=== PATIENT | female | born 1985 | race Caucasian/White ===

== ENCOUNTER 2019-03-09 15:52 | Emergency (ER) | payer OTHER ==
[2019-03-09 16:04] VITALS: BP 134/86
--- NOTE | 2019-03-09 16:31 | EDM.PDOC ---
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 Patient states she has not had an ultrasound of follows along with Ellen Zheng in the clinic and had a confirmation of appointment last week. Patient states she is having 9 out of 10 lower abdominal pain more so to the left. Patient states the pain is worse when she presses on it. Patient denies any other symptoms at this time. Patient denies any vaginal bleeding or change in discharge. Patient denies fever, chills, chest pain, shortness of breath, or cough. Denies headache, neck stiff ness, change in vision, syncope, or near syncope. Denies nausea, vomiting, diarrhea, constipation, or dysuria. Has not noted any blood in urine or stool. Patient has been eating and drinking appropriately. Review of systems: As per history of present illness and below otherwise all systems reviewed and negative. Past medical history: As per history of present illness and as reviewed below otherwise noncontributory. Surgical history: As per history of present illness and as reviewed below otherwise noncontributory. Social history: See social history for further information Family history: As per history of present illness and as reviewed below otherwise noncontributory. Physical exam: General: Patient is alert, oriented, and in no acute distress. Patient sitting comfortably on exam table. HEENT: Atraumatic, normocephalic, pupils equal and reactive bilaterally, negative for conjunctival pallor or scleral icterus, mucous membranes moist, TMs normal bilaterally, throat clear, neck supple, nontender, trachea midline. No drooling or trismus noted. No meningeal signs. No hot potato voice noted. Lungs: Clear to auscultation, breath sounds equal bilaterally, chest nontender. Heart: S1S2, regular rate and rhythm without overt murmur Abdomen: Severe suprapubic pain to palpation and to the left with guarding. Soft , nondistended. Negative for masses or hepatosplenomegaly. Negative for costovertebral tenderness. Pelvis: Stable nontender. Genitourinary: Deferred. Rectal: Deferred. Skin: Intact, warm, dry. No lesions or rashes noted. Extremities: Atraumatic, negative for cords or calf pain. Neurovascular unremarkable. Neuro: Awake, alert, oriented. Cranial nerves II through XII unremarkable. Cerebellum unremarkable. Motor and sensory unremarkable throughout. Exam nonfocal. Notes: Discussed the importance for follow-up with her HEEL SANDER RUBBER and for repeat hCG Quant. Voices understanding and is agreeable to plan of care. Denies any further questions or concerns at this time. Diagnostics: CBC, CMP, urine hCG, UA, hCG Quant, Rh/blood type, TVUS Therapeutics: None Prescription: None Impression: Left lower abdominal pain in early Plan: 1.Please start and/or continue to take your vitamin with folic acid once daily. 2. Pelvic rest until cleared by your OBGYN (no tampons, sex, etc...) 3. Tylenol as needed for pain management. This is safe to use in . 4. Follow up with your HEEL SANDER RUBBER in the next 1-2 days and repeat lab work as provided. Return to the ED as needed and as discussed. Definitive disposition and diagnosis as appropriate pending reevaluation and review of above. Lower Abdomen Pain Score (Numeric/FACES): 7 - Related Data Allergies Allergy/AdvReac Type Severity Reaction Status Date / Time metronidazole [From Flagyl] Allergy Rash Verified 11/21/16 14:23 Metronidazole HCl Allergy Rash Verified 11/21/16 14:23 [From Flagyl] Home Meds: Home Meds Escitalopram [Lexapro] 1 tab PO DAILY 10/29/16 [History] Sulfamethoxazole/Trimethoprim [Bactrim Ds Tablet] 1 each PO BID #20 tablet 11/21 [Rx] traMADol [Ultram] 50 mg PO Q8H PRN #12 tablet 11/21/16 [Rx] Past Medical History - Past Health History Medical/Surgical History: Denies Medical/Surgical History HEENT History: Reports: None Cardiovascular History: Reports: None Respiratory History: Reports: None Gastrointestinal History: Reports: None Genitourinary History: Reports: Renal Calculus HEEL SANDER RUBBER History: Reports: Polycystic Ovaries Musculoskeletal History: Reports: None Neurological History: Reports: None Psychiatric History: Reports: Anxiety Endocrine/Metabolic History: Reports: None Hematologic History: Reports: None Immunologic History: Reports: None Oncologic (Cancer) History: Reports: None Dermatologic History: Reports: None - Infectious Disease History Infectious Disease History: Reports: Chicken Pox - Past Surgical History Female Surgical History: Reports: Ureteral Stent Social & Family History - Family History Family Medical History: Noncontributory - Tobacco Use Smoking Status *Q: Current Every Day Smoker Years of Tobacco use: 11 Packs/Tins Daily: 0.5 - Caffeine Use Caffeine Use: Reports: Coffee Caffeine Use Comment: 2 drinks/day - Recreational Drug Use Recreational Drug Use: No - Living Situation & Occupation Occupation: Employed ED ROS GENERAL - Review of Systems Review Of Systems: ROS reveals no pertinent complaints other than HPI. ED EXAM - Physical Exam Exam: See Below (See dictation) Course - Vital Signs Last Recorded V/S: Last Vital Signs Temp 36.4 C 03/09/19 15:57 Pulse 89 03/09/19 15:57 Resp 17 03/09/19 15:57 BP 134/86 03/09/19 15:57 Pulse Ox 100 03/09/19 15:57 - Orders/Labs/Meds Labs: Laboratory Tests 03/09/19 03/09/19 03/09/19 Range/Units 14:20 14:20 16:27 WBC 11.42 H (4.0-11.0) K/uL RBC 4.52 (4.30-5.90) M/uL Hgb 13.2 (12.0-16.0) g/dL Hct 40.7 (36.0-46.0) % MCV 90.0 (80.0-98.0) fL MCH 29.2 (27.0-32.0) pg MCHC 32.4 (31.0-37.0) g/dL RDW Std Deviation 52.1 (28.0-62.0) fl RDW Coeff of Bianca 16 H (11.0-15.0) % Plt Count 336 (150-400) K/uL MPV 9.00 (7.40-12.00) fL Neut % (Auto) 71.2 (48.0-80.0) % Lymph % (Auto) 21.0 (16.0-40.0) % [place] % (Auto) 6.7 (0.0-15.0) % Eos % (Auto) 0.9 (0.0-7.0) % Baso % (Auto) 0.2 (0.0-1.5) % Neut # (Auto) 8.1 H (1.4-5.7) K/uL Lymph # (Auto) 2.4 (0.6-2.4) K/uL [place] # (Auto) 0.8 (0.0-0.8) K/uL Eos # (Auto) 0.1 (0.0-0.7) K/uL Baso # (Auto) 0.0 (0.0-0.1) K/uL Nucleated RBC % 0.0 /100WBC Nucleated RBCs # 0 K/uL Sodium (136-145) mmol/L Potassium (3.5-5.1) mmol/L Chloride (98-107) mmol/L Carbon Dioxide (21.0-32.0) mmol/L BUN (7.0-18.0) mg/dL Creatinine (0.6-1.0) mg/dL Est Cr Clr Drug Dosing mL/min Estimated GFR (MDRD) ml/min Glucose (74-106) mg/dL Calcium (8.5-10.1) mg/dL Total Bilirubin (0.2-1.0) mg/dL AST (15-37) IU/L ALT (14-63) IU/L Alkaline Phosphatase (46-116) U/L Total Protein (6.4-8.2) g/dL Albumin (3.4-5.0) g/dL Globulin (2.6-4.0) g/dL Albumin/Globulin Ratio (0.9-1.6) HCG, Quant mIU/mL Urine Color YELLOW Urine Appearance SLT CLOUDY Urine pH 7.0 (5.0-8.0) Ur Specific [place] 1.015 (1.001-1.035) Urine Protein NEGATIVE (NEGATIVE) mg/dL Urine Glucose (UA) NEGATIVE (NEGATIVE) mg/dL Urine Ketones NEGATIVE (NEGATIVE) mg/dL Urine Occult Blood NEGATIVE (NEGATIVE) Urine Nitrite NEGATIVE (NEGATIVE) Urine Bilirubin NEGATIVE (NEGATIVE) Urine Urobilinogen 0.2 (<2.0) EU/dL Ur Leukocyte Esterase NEGATIVE (NEGATIVE) Urine HCG, Qual POSITIVE (NEGATIVE) Blood Type 03/09/19 03/09/19 Range/Units 16:27 16:27 WBC (4.0-11.0) K/uL RBC (4.30-5.90) M/uL Hgb (12.0-16.0) g/dL Hct (36.0-46.0) % MCV (80.0-98.0) fL MCH (27.0-32.0) pg MCHC (31.0-37.0) g/dL RDW Std Deviation (28.0-62.0) fl RDW Coeff of Bianca (11.0-15.0) % Plt Count (150-400) K/uL MPV (7.40-12.00) fL Neut % (Auto) (48.0-80.0) % Lymph % (Auto) (16.0-40.0) % [place] % (Auto) (0.0-15.0) % Eos % (Auto) (0.0-7.0) % Baso % (Auto) (0.0-1.5) % Neut # (Auto) (1.4-5.7) K/uL Lymph # (Auto) (0.6-2.4) K/uL [place] # (Auto) (0.0-0.8) K/uL Eos # (Auto) (0.0-0.7) K/uL Baso # (Auto) (0.0-0.1) K/uL Nucleated RBC % /100WBC Nucleated RBCs # K/uL Sodium 139 (136-145) mmol/L Potassium 3.8 (3.5-5.1) mmol/L Chloride 102 (98-107) mmol/L Carbon Dioxide 29.0 (21.0-32.0) mmol/L BUN 12 (7.0-18.0) mg/dL Creatinine 0.7 (0.6-1.0) mg/dL Est Cr Clr Drug Dosing 117.47 mL/min Estimated GFR (MDRD) > 60.0 ml/min Glucose 80 (74-106) mg/dL Calcium 9.1 (8.5-10.1) mg/dL Total Bilirubin 0.3 (0.2-1.0) mg/dL AST 16 (15-37) IU/L ALT 25 (14-63) IU/L Alkaline Phosphatase 58 (46-116) U/L Total Protein 7.8 (6.4-8.2) g/dL Albumin 4.1 (3.4-5.0) g/dL Globulin 3.7 (2.6-4.0) g/dL Albumin/Globulin Ratio 1.1 (0.9-1.6) HCG, Quant 62134.0 mIU/mL Urine Color Urine Appearance Urine pH (5.0-8.0) Ur Specific [place] (1.001-1.035) Urine Protein (NEGATIVE) mg/dL Urine Glucose (UA) (NEGATIVE) mg/dL Urine Ketones (NEGATIVE) mg/dL Urine Occult Blood (NEGATIVE) Urine Nitrite (NEGATIVE) Urine Bilirubin (NEGATIVE) Urine Urobilinogen (<2.0) EU/dL Ur Leukocyte Esterase (NEGATIVE) Urine HCG, Qual (NEGATIVE) Blood Type A POSITIVE Departure - Departure Time of Disposition: 17:50 Disposition: DC/Tfer to [facility] - Home 50 Clinical Impression: Abdominal pain in Qualifiers: Trimester: first trimester Qualified Code(s): O26.891 - Other specified related conditions, first trimester; R10.9 - Unspecified abdominal pain - Discharge Information Referrals: PCP,Unknown [Primary Care Provider] - Forms: ED Department Discharge Additional Instructions: The following information is given to patients seen in the emergency department who are being discharged to home. This information is to outline your options for follow-up care. We provide all patients seen in our emergency department with a follow-up referral. The need for follow-up, as well as the timing and circumstances, are variable depending upon the specifics of your emergency department visit. If you don't have a primary care physician on staff, we will provide you with a referral. We always advise you to contact your personal physician following an emergency department visit to inform them of the circumstance of the visit and for follow-up with them and/or the need for any referrals to a consulting specialist. The emergency department will also refer you to a specialist when appropriate. This referral assures that you have the opportunity for follow-up care with a specialist. All of these measure are taken in an effort to provide you with optimal care, which includes your follow-up. Under all circumstances we always encourage you to contact your private physician who remains a resource for coordinating your care. When calling for follow-up care, please make the office aware that this follow-up is from your recent emergency room visit. If for any reason you are refused follow-up, please contact the [facility] Emergency Department at and asked to speak to the emergency department charge nurse. [facility] Primary Care [address] [address] [facility] [address] [place] [id number] 1. Please start and/or continue to take your vitamin with folic acid once daily. 2. Pelvic rest until cleared by your OBGYN (no tampons, sex, etc...) 3. Tylenol as needed for pain management. This is safe to use in . 4. Follow up with your HEEL SANDER RUBBER in the next 1-2 days and repeat lab work as provided. Return to the ED as needed and as discussed.
[2019-03-09 17:30] LABS: CHLORIDE,CL 102 mmol/L (98-107); SODIUM,NA 139 mmol/L (136-145)
--- NOTE | 2019-03-09 17:39 | US ---
INDICATION: with left-sided pelvic pain TECHNIQUE: Ultrasound OB pelvis transvaginal. Real time olivia scale imaging of the pelvis was performed. COMPARISON: None FINDINGS: Endovaginal scanning reveals a small fluid collection in the uterine fundal region appearing to represent a gestational sac within the fundal endometrial canal. The gestational sac measures 1.3 x 1.1 x 0.5 centimeters corresponding with a gestational age of 5 weeks 5 days. A pole is not identified and therefore a live intrauterine cannot be confirmed. Correlation with serial beta hCGs and/or follow-up sonography in 2-3 weeks is recommended. The uterus is otherwise unremarkable. Endovaginal scanning reveals the right ovary to measure 3.9 x 1.8 x 3.4 centimeters and the left ovary measured 2.8 x 2.9 x 2.8 centimeters. A probable corpus luteum is noted within the left ovary measuring up to 2 centimeters in diameter. Endovaginal spectral color and Doppler sonography reveal normal bilateral ovarian arterial and venous blood flow. No adnexal masses or abnormal pelvic fluid collections are seen. Specifically, there is no evidence for an ectopic . IMPRESSION: 1. Apparent gestational sac within the uterine endometrial canal corresponds with a gestational age of 5 weeks 5 days. A pole is not demonstrated and therefore a live intrauterine is not confirmed with this exam. Correlate with serial beta HCGs and/or follow-up sonography in 2-3 weeks. 2. Probable left ovarian corpus luteum. 3. Other findings are unremarkable as noted above. Dictated by Karel Bean MD @ Mar 09 2019 5:29PM Signed by Dr. Karel Bean @ Mar 09 2019 5:37PM
== END 2019-03-09 18:14 | disposition home or self-care (01) ==
LOC: MW.ED 15:52
DX: O99.89 Other specified diseases and conditions complicating pregnancy, childbirth and the puerperium (principal); R10.32 Left lower quadrant pain; O99.341 Other mental disorders complicating pregnancy, first trimester; F41.9 Anxiety disorder, unspecified; F17.210 Nicotine dependence, cigarettes, uncomplicated; Z79.899 Other long term (current) drug therapy; Z88.8 Allergy status to other drugs, medicaments and biological substances
CPT/HCPCS: 36415; 76801; 76801-26; 80053; 81003; 81025; 84702; 85025; 86900; 86901; 99284-25

== ENCOUNTER 2019-06-05 17:41 | Emergency (ER) | payer BC, OTHER ==
--- NOTE | 2019-06-05 18:34 | EDM.PDOC ---
ED HPI GENERAL MEDICAL PROBLEM - General Chief Complaint: Headache Stated Complaint: HEADACHE Time Seen by Provider: 06/05/19 18:27 - History of Present Illness INITIAL COMMENTS - FREE TEXT/NARRATIVE: HISTORY AND PHYSICAL: History of present illness: Patient 33-year-old female with history migraine headache was approximately 18 weeks presents with concern of migraine she has no other complaints she does use sumatriptan which was prescribed for her which she has at home. Review of systems: As per history of present illness and below otherwise all systems reviewed and negative. Past medical history: As per history of present illness and as reviewed below otherwise noncontributory. Surgical history: As per history of present illness and as reviewed below otherwise noncontributory. Social history: No reported history of drug or alcohol abuse. Family history: As per history of present illness and as reviewed below otherwise noncontributory. Physical exam: HEENT: Atraumatic, normocephalic, pupils reactive, negative for conjunctival pallor or scleral icterus, mucous membranes moist, throat clear, neck supple, nontender, trachea midline. Lungs: Clear to auscultation, breath sounds equal bilaterally, chest nontender. Heart: S1S2, regular, negative for clicks, rubs, or JVD. Abdomen: Soft, nondistended, nontender. Negative for masses or hepatosplenomegaly. Negative for costovertebral tenderness. Pelvis: Stable nontender. Genitourinary: Deferred. Rectal: Deferred. Extremities: Atraumatic, negative for cords or calf pain. Neurovascular unremarkable. Neuro: Awake, alert, oriented. Cranial nerves II through XII unremarkable. Cerebellum unremarkable. Motor and sensory unremarkable throughout. Exam nonfocal. Diagnostics: None Therapeutics: None Impression: #1 migraine headache #2 second trimester Definitive disposition and diagnosis as appropriate pending reevaluation and review of above. headache Pain Score (Numeric/FACES): 7 - Related Data Allergies Allergy/AdvReac Type Severity Reaction Status Date / Time metronidazole [From Flagyl] Allergy Rash Verified 06/05/19 18:32 Metronidazole HCl Allergy Rash Verified 06/05/19 18:32 [From Flagyl] Home Meds: Home Meds Escitalopram [Lexapro] 1 tab PO DAILY 10/29/16 [History] Sulfamethoxazole/Trimethoprim [Bactrim Ds Tablet] 1 each PO BID #20 tablet 11/21 [Rx] traMADol [Ultram] 50 mg PO Q8H PRN #12 tablet 11/21/16 [Rx] Past Medical History - Past Health History Medical/Surgical History: Denies Medical/Surgical History HEENT History: Reports: None Cardiovascular History: Reports: None Respiratory History: Reports: None Gastrointestinal History: Reports: None Genitourinary History: Reports: Renal Calculus 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 Musculoskeletal History: Reports: None Neurological History: Reports: None Psychiatric History: Reports: Anxiety Endocrine/Metabolic History: Reports: None Hematologic History: Reports: None Immunologic History: Reports: None Oncologic (Cancer) History: Reports: None Dermatologic History: Reports: None - Infectious Disease History Infectious Disease History: Reports: Chicken Pox - Past Surgical History Female Surgical History: Reports: Ureteral Stent Social & Family History - Family History Family Medical History: Noncontributory - Caffeine Use Caffeine Use: Reports: Coffee Caffeine Use Comment: 2 drinks/day - Living Situation & Occupation Occupation: Employed ED ROS GENERAL - Review of Systems Review Of Systems: ROS reveals no pertinent complaints other than HPI. ED EXAM, GENERAL - Physical Exam Exam: See Below (Dictation) Course - Vital Signs Last Recorded V/S: Last Vital Signs Temp 36.1 C 06/05/19 18:27 Pulse 73 06/05/19 18:27 Resp 18 06/05/19 18:27 BP 106/63 06/05/19 18:27 Pulse Ox 98 06/05/19 18:27 Departure - Departure Time of Disposition: 18:34 Disposition: Home, Self-Care 01 Condition: Good Clinical Impression: Migraine, Second trimester - Discharge Information Referrals: PCP,Unknown [Primary Care Provider] - Additional Instructions: The following information is given to patients seen in the emergency department who are being discharged to home. This information is to outline your options for follow-up care. We provide all patients seen in our emergency department with a follow-up referral. The need for follow-up, as well as the timing and circumstances, are variable depending upon the specifics of your emergency department visit. If you don't have a primary care physician on staff, we will provide you with a referral. We always advise you to contact your personal physician following an emergency department visit to inform them of the circumstance of the visit and for follow-up with them and/or the need for any referrals to a consulting specialist. The emergency department will also refer you to a specialist when appropriate. This referral assures that you have the opportunity for followup care with a specialist. All of these measure are taken in an effort to provide you with optimal care, which includes your followup. Under all circumstances we always encourage you to contact your private physician who remains a resource for coordinating your care. When calling for followup care, please make the office aware that this follow-up is from your recent emergency room visit. If for any reason you are refused follow-up, please contact the [facility] emergency department at and asked to speak to the emergency department charge nurse. Follow-up primary medical doctor as needed as discussed return as needed as discussed
[2019-06-05 18:47] VITALS: BP 108/72
== END 2019-06-05 18:45 | disposition home or self-care (01) ==
LOC: MW.ED 17:41
DX: O99.89 Other specified diseases and conditions complicating pregnancy, childbirth and the puerperium (principal); G43.909 Migraine, unspecified, not intractable, without status migrainosus; O99.342 Other mental disorders complicating pregnancy, second trimester; F41.9 Anxiety disorder, unspecified; Z3A.18 18 weeks gestation of pregnancy; Z88.1 Allergy status to other antibiotic agents; Z79.899 Other long term (current) drug therapy; Z87.442 Personal history of urinary calculi
CPT/HCPCS: 99283

== ENCOUNTER 2019-10-28 05:22 | Inpatient (IN) | payer OTHER ==
[2019-10-28] MEDS ORDERED: Methylergonovine 0.2 MG/1 ML Amp IM PRN (05:44)
[2019-10-28] MEDS ORDERED: Sodium Chloride 0.9% 10 ML Syringe FLUSH PRN (05:44)
[2019-10-28] MEDS ORDERED: Water For Irrigation,Sterile 1,000 ML Container IRR PRN (05:44)
[2019-10-28] MEDS ORDERED: Ondansetron 4 MG/2 ML SDV IVPUSH PRN (05:44)
[2019-10-28] MEDS ORDERED: Sodium Chloride 0.9% 10 ML SDV IV PRN (05:44)
[2019-10-28] MEDS ORDERED: Ampicillin 2 GM in Sodium Chloride 0.9% 100 ML IV ONE (05:44)
[2019-10-28] MEDS ORDERED: Tranexamic Acid 1,000 MG in Sodium Chloride 0.9% 100 ML IV PRN (05:44)
[2019-10-28] MEDS ORDERED: Misoprostol 25 MCG (1/4 of 100 MCG) Tab VAG PRN (05:44)
[2019-10-28] MEDS ORDERED: Terbutaline 1 MG/ML SDV SUBCUT PRN (05:44)
[2019-10-28] MEDS ORDERED: Carboprost Tromethamine 250 MCG/1 ML Amp IM PRN (05:44)
[2019-10-28] MEDS ORDERED: Misoprostol 200 MCG Tab PO PRN (05:44)
[2019-10-28] MEDS ORDERED: Lidocaine 1% 50 ML MDV INJECT PRN (05:44)
[2019-10-28] MEDS ORDERED: Oxytocin/0.9 % Sodium Chloride 30 UNIT/500 ML BAG IV SCH ×2 (05:45)
[2019-10-28] MEDS ORDERED: Misoprostol 25 MCG (1/4 of 100 MCG) Tab PO ONE (05:51)
[2019-10-28] MEDS: Lactated Ringers 1,000 ML IV SCH ×2 (06:23→18:05)
--- NOTE | 2019-10-28 09:25 | PCM.LDHP ---
L&D History of Present Illness - General Date of Service: 10/28/19 Admit Problem/Dx: Patient Status Order with Admit Dx/Problem 10/28/19 05:44 Patient Status [ADT] Routine Admission Diagnosis/Problem Admission Diagnosis/Problem -related examination Source of Information: Patient History Limitations: Reports: No Limitations - History of Present Illness Improves with: Reports: None Worsens with: Reports: None Associated Symptoms: Reports: N - Related Data Allergies/Adverse Reactions: Allergies Allergy/AdvReac Type Severity Reaction Status Date / Time metronidazole [From Flagyl] Allergy Hives Verified 06/16/19 17:57 Metronidazole HCl Allergy Hives Verified 06/16/19 17:57 [From Flagyl] Home Medications: Home Meds Pnv No.95/Ferrous Fum/Folic AC [ Caplet] 1 tab PO DAILY 06/05/19 [ History] SUMAtriptan Succinate [Imitrex] 1 tab PO Q2H PRN 09/08/19 [History] Past Medical History - Past Health History Medical/Surgical History: Denies Medical/Surgical History HEENT History: Reports: None Cardiovascular History: Reports: None Respiratory History: Reports: None Gastrointestinal History: Reports: None Genitourinary History: Reports: Renal Calculus, UTI, 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: Polycystic Ovaries, , Spontaneous Musculoskeletal History: Reports: None Neurological History: Reports: None Psychiatric History: Reports: Anxiety Endocrine/Metabolic History: Reports: None Hematologic History: Reports: None Immunologic History: Reports: None Oncologic (Cancer) History: Reports: None Dermatologic History: Reports: None - Infectious Disease History Infectious Disease History: Reports: Chicken Pox - Past Surgical History Female Surgical History: Reports: Ureteral Stent Social & Family History - Family History Family Medical History: Noncontributory - Tobacco Use Smoking Status *Q: Never Smoker Second Hand Smoke Exposure: No - Caffeine Use Caffeine Use: Reports: Soda Caffeine Use Comment: 2 drinks/day - Recreational Drug Use Recreational Drug Use: No - Living Situation & Occupation Occupation: Employed H&P Review of Systems - Review of Systems: Review Of Systems: See Below General: Reports: No Symptoms HEENT: Reports: No Symptoms Pulmonary: Reports: No Symptoms Cardiovascular: Reports: No Symptoms Gastrointestinal: Reports: No Symptoms Genitourinary: Reports: No Symptoms Musculoskeletal: Reports: No Symptoms Skin: Reports: No Symptoms Psychiatric: Reports: No Symptoms Neurological: Reports: No Symptoms Hematologic/Lymphatic: Reports: No Symptoms Immunologic: Reports: No Symptoms L&D Exam - Exam Exam: See Below - Vital Signs Weight: 84.368 kg - OB Specific Contraction Intensity: Mild Movement: Active Heart Tones: Present Presentation: Vertex - Bautista Score Bautista Score Cervix Position: Midposition Bautista Score Consistency: Soft Bautista Score Effacement: 31-50% Bautista Score Dilation: 1-2 cm Bautista Score Infant's Station: -3 Bautista Score Total: 5 - Exam General: Alert, Oriented HEENT: PERRLA, Conjunctiva Clear, EACs Clear, EOMI, Hearing Intact, Mucosa Moist & [place], Nares Patent, Normal Nasal Septum, Posterior Pharynx Clear, TMs Clear Neck: Supple, Trachea Midline Lungs: Clear to Auscultation, Normal Respiratory Effort Cardiovascular: Regular Rate, Regular Rhythm GI/Abdominal Exam: Normal Bowel Sounds, Soft, Non-Tender, No Organomegaly, No Distention, No Abnormal Bruit, No Mass, Pelvis Stable Rectal Exam: Normal Exam, Normal Rectal Tone Genitourinary: Normal external exam, Normal bimanual exam, Normal speculum exam Back Exam: Normal Inspection, Full Range of Motion Extremities: Normal Inspection, Normal Range of Motion, Non-Tender, No Pedal Edema, Normal Capillary Refill Skin: Warm, Dry, Intact Neurological: Cranial Nerves Intact, Reflexes Equal Bilateral Psychiatric: Alert, Normal Affect, Normal Mood - Patient Data Lab Results Last 24 hrs: Laboratory Results - last 24 hr 10/28/19 10/28/19 Range/Units 06:00 06:00 WBC 9.83 (4.0-11.0) K/uL RBC 3.82 L (4.30-5.90) M/uL Hgb 11.9 L (12.0-16.0) g/dL Hct 35.2 L (36.0-46.0) % MCV 92.1 (80.0-98.0) fL MCH 31.2 (27.0-32.0) pg MCHC 33.8 (31.0-37.0) g/dL RDW Std Deviation 47.8 (28.0-62.0) fl RDW Coeff of Bianca 14 (11.0-15.0) % Plt Count 224 (150-400) K/uL MPV 9.60 (7.40-12.00) fL Nucleated RBC % 0.0 /100WBC Nucleated RBCs # 0 K/uL Blood Type A POSITIVE Antibody Screen NEGATIVE Result Diagrams: 10/28/19 06:00 Problem List Initiated/Reviewed/Updated: Yes Orders Last 24hrs: Active Orders 24 hr Category Date Time Status Patient Status [ADT] Routine ADT 10/28/19 05:44 Active Bedrest Bathroom Privileges [RC] ASDIRECTED Care 10/28/19 05:44 Active Communication Order [RC] ASDIRECTED Care 10/28/19 05:44 Active Communication Order [RC] ASDIRECTED Care 10/28/19 05:44 Active Communication Order [RC] ASDIRECTED Care 10/28/19 05:44 Active Heart Tones [RC] CONTINUOUS Care 10/28/19 05:44 Active Non Stress Test [RC] PER UNIT ROUTINE Care 10/28/19 05:44 Active May Shower [RC] ASDIRECTED Care 10/28/19 05:44 Active Notify Provider [RC] PRN Care 10/28/19 05:44 Active Notify Provider [RC] PRN Care 10/28/19 05:44 Active Notify Provider [RC] PRN Care 10/28/19 05:44 Active Notify Provider [RC] STAT Care 10/28/19 05:44 Active Oxygen Therapy [RC] ASDIRECTED Care 10/28/19 05:44 Active Up ad Solange [RC] ASDIRECTED Care 10/28/19 05:44 Active Vaginal Exam [RC] PRN Care 10/28/19 05:44 Active Vaginal Exam [RC] PRN Care 10/28/19 05:44 Active Vital Signs [RC] PER UNIT ROUTINE Care 10/28/19 05:44 Active Vital Signs [RC] PER UNIT ROUTINE Care 10/28/19 05:44 Active Regular Diet [DIET] Diet 10/28/19 Breakfast Active RAPID PLASMA REAGIN, QUANT [REF] Routine Lab 10/28/19 06:00 Received Ampicillin 1 gm Med 10/28/19 10:00 Active Sodium Chloride 0.9% [Normal Saline] 50 ml IV Q4H Carboprost Tromethamine [Hemabate DS] Med 10/28/19 05:44 Active 250 mcg IM ASDIRECTED PRN Lactated Ringers [Ringers, Lactated] 1,000 ml Med 10/28/19 05:45 Active IV ASDIRECTED Lidocaine 1% [Xylocaine 1%] Med 10/28/19 05:44 Active 50 ml INJECT ONETIME PRN Methylergonovine [Methergine] Med 10/28/19 05:44 Active 0.2 mg IM ASDIRECTED PRN Nalbuphine [Nubain] Med 10/28/19 05:44 Active 10 mg IVPUSH ASDIRECTED PRN Ondansetron [Zofran] Med 10/28/19 05:44 Active 4 mg IVPUSH Q6H PRN Oxytocin/0.9 % Sodium Chloride [Oxytocin 30 Unit/500 ML Med 10/28/19 05:45 Active -NS] 30 unit in 500 ml IV TITRATE Oxytocin/0.9 % Sodium Chloride [Oxytocin 30 Unit/500 ML Med 10/28/19 05:45 Active -NS] 30 unit in 500 ml IV TITRATE Sodium Chloride 0.9% [Normal Saline] Med 10/28/19 05:44 Active 10 ml IV ASDIRECTED PRN Sodium Chloride 0.9% [Saline Flush] Med 10/28/19 05:44 Active 10 ml FLUSH ASDIRECTED PRN Terbutaline [Brethine] Med 10/28/19 05:44 Active 0.25 mg SUBCUT ASDIRECTED PRN Tranexamic Acid [Cyklokapron] 1,000 mg Med 10/28/19 05:44 Active Sodium Chloride 0.9% [Normal Saline] 100 ml IV ONETIME Water For Irrigation,Sterile [Sterile Water for Med 10/28/19 05:44 Active Irrigation] 1,000 ml IRR ASDIRECTED PRN miSOPROStoL [Cytotec] Med 10/28/19 05:44 Active 200 mcg PO ONETIME PRN miSOPROStoL [Cytotec] Med 10/28/19 06:00 Active 25 mcg PO Q4H miSOPROStoL [Cytotec] Med 10/28/19 05:44 Active 25 mcg VAG ONETIME PRN miSOPROStoL [Cytotec] Med 10/28/19 05:44 Active 25 mcg VAG Q4H PRN Scalp Electrode [WOMSER] Per Unit Routine Oth 10/28/19 05:44 Ordered Medication Administration Instruction [OM.PC] Q3H Oth 10/28/19 05:45 Ordered Peripheral IV Insertion Adult [OM.PC] Routine Oth 10/28/19 05:44 Ordered Resuscitation Status Routine Resus Stat 10/28/19 05:44 Ordered Medication Orders Carboprost Tromethamine (Hemabate Ds) 250 mcg IM ASDIRECTED PRN PRN Reason: Post Hemorrhage Lactated Ringer's (Ringers, Lactated) 1,000 mls @ 150 mls/hr IV ASDIRECTED TIFFANY Last Admin: 10/28/19 06:23 Dose: 150 mls/hr Oxytocin/Sodium Chloride (Oxytocin 30 Unit/500 Ml-Ns) 30 unit in 500 mls @ 999 mls/hr IV TITRATE TIFFANY Oxytocin/Sodium Chloride (Oxytocin 30 Unit/500 Ml-Ns) 30 unit in 500 mls @ 2 mls/hr IV TITRATE [facility]; Protocol Tranexamic Acid 1,000 mg/ (Sodium Chloride) 110 mls @ 660 mls/hr IV ONETIME PRN PRN Reason: Bleeding Ampicillin Sodium 1 gm/ Sodium (Chloride) 50 mls @ 100 mls/hr IV Q4H [facility] Lidocaine HCl (Xylocaine 1%) 50 ml INJECT ONETIME PRN PRN Reason: Laceration repair Methylergonovine Maleate (Methergine) 0.2 mg IM ASDIRECTED PRN PRN Reason: Post Hemorrhage Misoprostol (Cytotec) 200 mcg PO ONETIME PRN PRN Reason: Post Hemorrhage Misoprostol (Cytotec) 25 mcg VAG ONETIME PRN PRN Reason: Cervical Ripening Last Admin: 10/28/19 06:25 Dose: 25 mcg Misoprostol (Cytotec) 25 mcg VAG Q4H PRN PRN Reason: Cervical Ripening Misoprostol (Cytotec) 25 mcg PO Q4H [facility] Nalbuphine HCl (Nubain) 10 mg IVPUSH ASDIRECTED PRN PRN Reason: Pain (severe 7-10) Ondansetron HCl (Zofran) 4 mg IVPUSH Q6H PRN PRN Reason: Nausea/Vomiting Sodium Chloride (Saline Flush) 10 ml FLUSH ASDIRECTED PRN PRN Reason: Keep Vein Open Sodium Chloride (Normal Saline) 10 ml IV ASDIRECTED PRN PRN Reason: IV Use Sterile Water (Sterile Water For Irrigation) 1,000 ml IRR ASDIRECTED PRN PRN Reason: delivery Terbutaline Sulfate (Brethine) 0.25 mg SUBCUT ASDIRECTED PRN PRN Reason: Tacysystole Assessment/Plan Comment:: Admitted for elective induction.
[2019-10-28] MEDS: Ampicillin 1 GM in Sodium Chloride 0.9% 50 ML IV SCH ×2 (10:38→15:03)
[2019-10-28] MEDS: Misoprostol 25 MCG (1/4 of 100 MCG) Tab PO SCH ×3 (10:45→15:21)
[2019-10-28] MEDS: Misoprostol 25 MCG (1/4 of 100 MCG) Tab VAG PRN ×2 (10:51→15:22)
[2019-10-28] MEDS: Nalbuphine 10 MG/1 ML Vial IVPUSH PRN ×2 (15:35→18:09)
[2019-10-28] MEDS ORDERED: Witch Hazel Medicated Pads 40/Jar TOP PRN (19:04)
[2019-10-28] MEDS ORDERED: Ibuprofen 400 MG Tab PO PRN (19:04)
[2019-10-28] MEDS ORDERED: Lanolin 100% Cream 7 GM Tube TOP PRN (19:04)
[2019-10-28] MEDS ORDERED: Docusate Sodium 100 MG Cap PO PRN (19:04)
[2019-10-28] MEDS ORDERED: Benzocaine/Menthol 20%-0.5% Spray 78 GM Cannister TOP PRN (19:04)
[2019-10-28] MEDS ORDERED: Acetaminophen 500 MG Tab PO PRN ×2 (19:04)
[2019-10-28] MEDS ORDERED: Bisacodyl 10 MG Supp RECTAL PRN (19:04)
[2019-10-28] MEDS ORDERED: Oxytocin 10 Units/1 ML SDV ONE (19:13)
[2019-10-28] MEDS: Ibuprofen 800 MG Tab PO PRN (19:24)
--- NOTE | 2019-10-28 19:45 | OR ---
SURGEON: Александр Jj MD DATE OF PROCEDURE: Ms. Fleming is a 34-year-old. She is para 1-0-0-1. She is followed in our clinic primarily by our nurse oracle fusion consultant, Ellen Zheng CNM. The patient is 40 weeks, GBS status is positive. She is admitted for elective induction. She was induced with Cytotec, and she started on antibiotic according to the protocol. She started progressing rather slowly initially, and then she started having regular contractions and then after that she went from 4 to 7, complete, and she had a precipitous labor attended by the labor and delivery nursing staff. When I was arrived, the fetus was already delivered, and the placenta was already delivered. I did a pelvic examination. There were no lacerations. The perineum was intact. ESTIMATED BLOOD LOSS: About 250 to 300 mL. heart rate was category 1 through the entire process of labor. There was no complication into the labor and the delivery process. GOVIND / JACLYN /[id number]
[2019-10-28] MEDS: oxyCODONE 5 MG Tab PO PRN ×2 (20:39→22:59)
[2019-10-29] MEDS: Ibuprofen 800 MG Tab PO PRN ×3 (01:24→17:25)
[2019-10-29] MEDS: oxyCODONE 5 MG Tab PO PRN ×3 (06:07→20:06)
[2019-10-29 09:31] VITALS: PULSE 74
--- NOTE | 2019-10-29 10:47 | PCM.PNPP ---
- General Info Date of Service: 10/29/19 Functional Status: Reports: Pain Controlled - Review of Systems General: Reports: No Symptoms HEENT: Reports: No Symptoms Pulmonary: Reports: No Symptoms Cardiovascular: Reports: No Symptoms Gastrointestinal: Reports: No Symptoms Genitourinary: Reports: No Symptoms Musculoskeletal: Reports: No Symptoms Skin: Reports: No Symptoms Neurological: Reports: No Symptoms Psychiatric: Reports: No Symptoms - General Info Date of Service: 10/29/19 - Patient Data Vital Signs - Most Recent: Last Vital Signs Temp 36.5 C 10/29/19 08:15 Pulse 74 10/29/19 08:15 Resp 17 10/29/19 08:15 BP 108/56 L 10/29/19 08:15 Pulse Ox 98 10/29/19 08:15 Weight - Most Recent: 84.368 kg Lab Results - Last 24 Hours: Laboratory Results - last 24 hr 10/29/19 Range/Units 06:05 Hgb 11.2 L (12.0-16.0) g/dL Hct 33.9 L (36.0-46.0) % Med Orders - Current: Current Medications Acetaminophen (Tylenol Extra Strength) 500 mg PO Q4H PRN PRN Reason: Pain Acetaminophen (Tylenol Extra Strength) 1,000 mg PO Q4H PRN PRN Reason: Pain Benzocaine/Menthol (Dermoplast Pain Relief 20%-0.5% [place]) 78 gm TOP ASDIRECTED PRN PRN Reason: Perineal Comfort Measure Last Admin: 10/28/19 19:25 Dose: 1 can Bisacodyl (Dulcolax) 10 mg RECTAL ONETIME PRN PRN Reason: Constipation Carboprost Tromethamine (Hemabate Ds) 250 mcg IM ASDIRECTED PRN PRN Reason: Post Hemorrhage Docusate Sodium (Colace) 100 mg PO BID PRN PRN Reason: Constipation Emollient Ointment (Lansinoh Hpa) 0 gm TOP ASDIRECTED PRN PRN Reason: Sore Nipples Oxytocin/Sodium Chloride (Oxytocin 30 Unit/500 Ml-Ns) 30 unit in 500 mls @ 999 mls/hr IV TITRATE TIFFANY Ibuprofen (Motrin) 400 mg PO Q4H PRN PRN Reason: Pain Ibuprofen (Motrin) 800 mg PO Q6H PRN PRN Reason: Pain Last Admin: 10/29/19 10:13 Dose: 800 mg Lidocaine HCl (Xylocaine 1%) 50 ml INJECT ONETIME PRN PRN Reason: Laceration repair Methylergonovine Maleate (Methergine) 0.2 mg IM ASDIRECTED PRN PRN Reason: Post Hemorrhage Misoprostol (Cytotec) 200 mcg PO ONETIME PRN PRN Reason: Post Hemorrhage Oxycodone HCl (Oxycodone) 5 mg PO Q2H PRN PRN Reason: Pain Last Admin: 10/29/19 06:07 Dose: 5 mg Witch Hortensia (Tucks) 1 pad TOP ASDIRECTED PRN PRN Reason: comfort care Last Admin: 10/28/19 19:26 Dose: 1 tub Discontinued Medications Ampicillin Sodium 2 gm/ Sodium (Chloride) 100 mls @ 200 mls/hr IV ONETIME ONE Stop: 10/28/19 06:13 Last Admin: 10/28/19 06:25 Dose: 200 mls/hr Lactated Ringer's (Ringers, Lactated) 1,000 mls @ 150 mls/hr IV ASDIRECTED TIFFANY Last Admin: 10/28/19 18:05 Dose: 999 mls/hr Oxytocin/Sodium Chloride (Oxytocin 30 Unit/500 Ml-Ns) 30 unit in 500 mls @ 2 mls/hr IV TITRATE [facility]; Protocol Tranexamic Acid 1,000 mg/ (Sodium Chloride) 110 mls @ 660 mls/hr IV ONETIME PRN PRN Reason: Bleeding Ampicillin Sodium 1 gm/ Sodium (Chloride) 50 mls @ 100 mls/hr IV Q4H [facility] Last Admin: 10/28/19 15:03 Dose: 100 mls/hr Misoprostol (Cytotec) 25 mcg VAG ONETIME PRN PRN Reason: Cervical Ripening Last Admin: 10/28/19 06:25 Dose: 25 mcg Misoprostol (Cytotec) 25 mcg VAG Q4H PRN PRN Reason: Cervical Ripening Last Admin: 10/28/19 15:22 Dose: 25 mcg Misoprostol (Cytotec) 25 mcg PO ONETIME ONE Stop: 10/28/19 05:52 Last Admin: 10/28/19 06:25 Dose: 25 mcg Misoprostol (Cytotec) 25 mcg PO Q4H [facility] Last Admin: 10/28/19 15:21 Dose: 25 mcg Nalbuphine HCl (Nubain) 10 mg IVPUSH ASDIRECTED PRN PRN Reason: Pain (severe 7-10) Last Admin: 10/28/19 18:09 Dose: 10 mg Ondansetron HCl (Zofran) 4 mg IVPUSH Q6H PRN PRN Reason: Nausea/Vomiting Oxytocin (Pitocin) Confirm Administered Dose 10 unit .ROUTE .[employer]-MED ONE Stop: 10/28/19 19:14 Last Admin: 10/28/19 19:24 Dose: 10 unit Sodium Chloride (Saline Flush) 10 ml FLUSH ASDIRECTED PRN PRN Reason: Keep Vein Open Sodium Chloride (Normal Saline) 10 ml IV ASDIRECTED PRN PRN Reason: IV Use Sterile Water (Sterile Water For Irrigation) 1,000 ml IRR ASDIRECTED PRN PRN Reason: delivery Terbutaline Sulfate (Brethine) 0.25 mg SUBCUT ASDIRECTED PRN PRN Reason: Tacysystole - Infant Interaction Infant Disposition, : in Room with Family Interaction: Holding Infant Feeding: Attempted ; Nursed Fair/Poor Support Person: Significant Other - Recovery Exam Fundal Tone: Firm Fundal Level: 1 Fingerbreadths Below Umbilicus Fundal Placement: Midline Lochia Amount: Small, Moderate Lochia Color: Rubra/Red Perineum Description: Intact, Minimal Bruising/Swelling Episiotomy/Laceration: None Bladder Status: Nonpalpable, Voiding Urinary Elimination: Voided - Exam General: Alert, Oriented HEENT: Pupils Equal Neck: Supple Lungs: Clear to Auscultation, Normal Respiratory Effort Cardiovascular: Regular Rate, Regular Rhythm GI/Abdominal Exam: Normal Bowel Sounds, Soft, Non-Tender, No Organomegaly, No Distention, No Abnormal Bruit, No Mass, Pelvis Stable Extremities: Normal Inspection, Normal Range of Motion, Non-Tender, No Pedal Edema, Normal Capillary Refill Skin: Warm, Dry, Intact Wound/Incisions: Healing Well Neurological: No New Focal Deficit Psy/Mental Status: Alert, Normal Affect, Normal Mood - Problem List Review Problem List Initiated/Reviewed/Updated: Yes - My Orders Last 24 Hours: My Active Orders 10/28/19 19:04 Acetaminophen [Tylenol Extra Strength] 1,000 mg PO Q4H PRN Acetaminophen [Tylenol Extra Strength] 500 mg PO Q4H PRN Benzocaine/Menthol [Dermoplast Pain Relief 20%-0.5% [place]] 78 gm TOP ASDIRECTED PRN Docusate Sodium [Colace] 100 mg PO BID PRN Ibuprofen [Motrin] 400 mg PO Q4H PRN Ibuprofen [Motrin] 800 mg PO Q6H PRN Lanolin [Lansinoh HPA] See Dose Instructions TOP ASDIRECTED PRN Witch Hortensia [Tucks] 1 pad TOP ASDIRECTED PRN bisacodyL [Dulcolax] 10 mg RECTAL ONETIME PRN oxyCODONE 5 mg PO Q2H PRN Resuscitation Status Routine 10/28/19 19:05 Patient Status [ADT] Routine May Shower [RC] ASDIRECTED Up ad Solange [RC] ASDIRECTED Vital Signs [RC] PER UNIT ROUTINE Assess Lochia [WOMSER] Per Unit Routine Assess Uterine Involution [WOMSER] Per Unit Routine Peripheral IV Discontinue [OM.PC] Routine - Assessment Assessment:: S/P doing ok. - Plan Plan:: Admitted for elective induction.
[2019-10-29 20:39] VITALS: BP 123/66
== END 2019-10-29 22:02 | disposition home or self-care (01) | DRG 807 ==
LOC: MW.OBCHECK 05:22 → MW.OB 05:23 → MW.OBCHECK 05:44 → OBSVTOIN 19:05 → MW.OB 23:09
PROVIDERS: ADMIT Obstetrics & Gynecology; ATTEND Obstetrics & Gynecology
PROC: 10E0XZZ Delivery of Products of Conception, External Approach (ICD-10-PCS; principal; 2019-10-28)
PROC: 3E0P7VZ Introduction of Hormone into Female Reproductive, Via Natural or Artificial Opening (ICD-10-PCS; 2019-10-28)
DX: O99.824 Streptococcus B carrier state complicating childbirth (principal); Z37.0 Single live birth; Z79.899 Other long term (current) drug therapy; Z3A.39 39 weeks gestation of pregnancy
CPT/HCPCS: 36415; 59025; 59409; 85014; 85018; 85027; 86592; 86593; 86850; 86900; 86901; A9270-GY; J0290; J2300; J2590; J7050; J7120

== ENCOUNTER 2020-09-26 06:55 | Day surgery (SDC) | payer OTHER ==
[2020-09-26] MEDS ORDERED: Bupivacaine 0.5% 30 ML SDV ONE (07:14)
[2020-09-26] MEDS ORDERED: Lidocaine 1% 20 ML MDV ONE (07:15)
[2020-09-26] MEDS ORDERED: Lactated Ringers 1,000 ML IV SCH (07:45)
[2020-09-26] MEDS ORDERED: ceFAZolin 1 GM Vial IM ONE (08:01)
[2020-09-26] MEDS ORDERED: ceFAZolin 1 GM Vial ONE (08:01)
[2020-09-26] MEDS ORDERED: ceFAZolin 1 GM in Premix Bag 1 BAG IV ONE (08:43)
[2020-09-26] MEDS ORDERED: Octyl 2-Cyanoacrylate 1 Tube ONE (09:08)
[2020-09-26] MEDS ORDERED: Acetaminophen/oxyCODONE 325-5 MG Tab PO PRN (09:22)
--- NOTE | 2020-09-26 09:24 | PCM.OPNOTE ---
- General Post-Op/Procedure Note Date of Surgery/Procedure: 09/26/20 Operative Procedure(s): Excision right shoulder mass, excision right posterior scalp mass x 2 Findings: 1 x 2 x 1 cm right shoulder sebaceous cyst. 8mm x 10mm x 5mm right scalp mass #1. 6mm diameter right scalp mass # 2 Pre Op Diagnosis: Right shoulder mass, right posterior scalp mass x 2 Post-Op Diagnosis: same Anesthesia Technique: Local Primary Surgeon: Albina Montelongo Fluid Replacement, Intraop: 450 EBL in mLs: 5 Condition: Good
[2020-09-26 10:55] VITALS: BP 96/55; PULSE 58
--- NOTE | 2020-09-26 12:40 | OR ---
SURGEON: REED SHARPE MD DATE OF PROCEDURE: 09/26/2020 PREOPERATIVE DIAGNOSES: Right shoulder mass, right scalp mass x2. POSTOPERATIVE DIAGNOSES: Right shoulder mass, right scalp mass x2. PROCEDURE PERFORMED: Excision of right shoulder mass, excision of right scalp mass x2. ANESTHESIA: Local. FLUIDS: 450 mL crystalloid. ESTIMATED BLOOD LOSS: 5 mL. FINDINGS: 1. 1 x 2 x 1 cm right shoulder sebaceous cyst. 2. 8 mm x 10 mm x 5 mm right scalp mass #1. 3. 6 mm in diameter right scalp mass #2. COMPLICATIONS: None. INDICATIONS: The patient is a 35-year-old female who presented to clinic with a right shoulder mass as well as 2 small scalp lesions. She states these have been present for quite some time. They would periodically enlarge and become painful. She had an ultrasound performed of the right shoulder mass which shows this is likely a sebaceous cyst. The patient and I discussed excising these in the operating room. I explained the procedure, expected perioperative course, and the risks. She verbalized understanding and wishes to proceed. PROCEDURE IN DETAIL: The patient was brought to the OR and placed on the OR table in a left lateral decubitus position. A time-out was completed verifying the patient's name, age, date of , allergies, and procedure to be performed. The right posterior neck and right shoulder were prepped and draped in usual standard fashion. I began the procedure by excising the right shoulder mass. I anesthetized the area around the right shoulder mass with 1% lidocaine plain. A 3 cm incision was made over the top of the mass. This was done using a 15 blade. Electrocautery was then used to dissect around the mass. I entered the cyst wall and fluid was expressed consistent with a sebaceous cyst. I grasped the cyst wall with an Allis clamp, and dissected around it using electrocautery. The cyst was removed and placed on the back table. It measured 1 x 2 x 1 cm in size. There were no margins associated with the case. Hemostasis was achieved with electrocautery and the wound was packed. I then turned my attention to the right posterior scalp. There was a small nodule along the lower part of the scalp line. I anesthetized this area with 1% lidocaine plain. A 15 blade was used to make a 1 cm incision over the top of this. The lesion was below the subcutaneous fat layer. I extended my incision on either side and dissected down to the muscle fascia. I encountered a hard nodule. I grasped this with an Allis clamp, and dissected it free from the surrounding tissue using a Metzenbaum scissors. It was placed on the back table and measured. It measured 8 mm x 10 mm x 5 mm in size. It was labeled as right scalp mass #1 and sent to pathology. I then turned my attention to the more superior scalp lesion. I excised this in a similar manner. It was placed on the back table and measured 6 mm in diameter. It was sent to pathology, labeled as right scalp mass #2. Both wounds were then made hemostatic using electrocautery. I then closed the wound with interrupted layers of 3-0 Vicryl sutures. I then closed the skin with interrupted 3-0 Ethilon suture. I then turned my attention back to the right shoulder mass area. This wound was closed with interrupted 3-0 Vicryl in the subcutaneous fat layer. The skin was closed with a running 4-0 Monocryl stitch. Dermabond and a sterile dressing was applied to this. A sterile dressing was placed over the top of the scalp lesion incisions. All counts were complete and correct at the end of the case. The patient was taken back to the preoperative area in stable condition. CYNTHIA ANAYA /[id number]
[2020-09-27] MEDS ORDERED: Lidocaine 1% 20 ML MDV ONE (14:25)
[2020-09-27] MEDS ORDERED: Bupivacaine 0.5% 30 ML SDV ONE (14:26)
== END 2020-09-26 09:45 | disposition home or self-care (01) ==
LOC: MW.SDS 06:55
PROVIDERS: ATTEND Surgery
DX: R59.0 Localized enlarged lymph nodes (principal); L72.3 Sebaceous cyst; M79.89 Other specified soft tissue disorders; F41.8 Other specified anxiety disorders; F17.200 Nicotine dependence, unspecified, uncomplicated; G43.009 Migraine without aura, not intractable, without status migrainosus; Z88.8 Allergy status to other drugs, medicaments and biological substances; Z79.899 Other long term (current) drug therapy
CPT/HCPCS: 11402; 21013; A9270; J0690; J2001; J3490; J7120; 88304; 88305

== ENCOUNTER 2020-09-27 22:34 | Emergency (ER) | payer OTHER ==
[2020-09-27] MEDS ORDERED: Sodium Chloride 0.9% 10 ML Syringe FLUSH PRN (22:40)
[2020-09-27] MEDS ORDERED: Sodium Chloride 0.9% 2.5 ML Syringe FLUSH PRN (22:40)
[2020-09-27 23:13] LABS: BLOOD UREA NITROGEN,BUN 16 mg/dL (7.0-18.0); CARBON DIOXIDE,CO2 25.8 mmol/L (21.0-32.0); CHLORIDE,CL 103 mmol/L (98-107); GLUCOSE RANDOM 102 mg/dL (74-106); POTASSIUM,K 3.4 mmol/L (3.5-5.1); SODIUM,NA 139 mmol/L (136-145)
[2020-09-27] MEDS ORDERED: oxyCODONE 5 MG Tab PO ONE (23:17)
[2020-09-27] MEDS ORDERED: Acetaminophen 500 MG Tab PO ONE (23:17)
--- NOTE | 2020-09-27 23:18 | EDM.PDOC ---
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 She actually had an OB appointment around 2:00 this afternoon for her initial intake, she states that she had a transvaginal ultrasound performed which looked normal. 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 She was diagnosed with a UTI and bacterial vaginosis and was started on clindamycin and nitrofurantoin. After leaving the appointment approximately 1 to 2 hours later she began experiencing heavier vaginal bleeding and developed bilateral lower abdominal pain described as "cramping". She was not having this pain when she was at her appointment. The pain and bleeding increased throughout the evening, which was concerning so she came to the emergency department. She denies any prior history of, bleeding disorder, denies hematemesis, epistaxis, hemoptysis, or bright red blood per rectum. No history of any abdominal trauma, denies fever, nausea, vomiting, diarrhea. States she is passing bright red liquid blood but is not passing any clots or tissue. ROS: A 10-point review of systems was negative, except as noted in the HPI (or in the ROS section of this note). Past medical history: Reviewed, no additional pertinent history. Surgical history: Reviewed in system, no additional pertinent history. Social history: Reviewed in system, no additional pertinent history. Family history: Reviewed in system, no additional pertinent history. PHYSICAL EXAM Vital signs reviewed. Nursing notes reviewed. Constitutional: Awake, alert, non-distressed. Head: Normocephalic, atraumatic. Eyes: EOMI, conjunctiva normal, no discharge, no scleral icterus. Ears, Nose, Throat: External ears and nose normal, moist oral mucosa. Cardiovascular: 2+ radial pulses bilaterally, capillary refill less than 2 seconds. Pulmonary: normal work of breathing, no accessory muscle use. Abdomen/GI: Soft, mild bilateral lower tenderness nondistended, no guarding or rigidity, no masses. : Chaperoned pelvic examination, small amount of dark liquid blood, no clots or tissue, no vaginal lacerations or lesions, no discharge. Musculoskeletal: No deformities. Integumentary: Appropriate color for ethnicity, warm, dry, no pallor or jaundice, no rash. Neurologic: Alert, answering questions appropriately, normal speech, no facial droop, moving all extremities well. Psychiatric: Appropriate mood and affect, normal thought process. This patient was seen and evaluated during the 2019 SARS-CoV-2 novel coronavirus pandemic period. Community viral transmission is ongoing at time of this encounter and the emergency department is operating under pandemic response procedures. ABDOMEN Pain Score (Numeric/FACES): 6 - Related Data Allergies Allergy/AdvReac Type Severity Reaction Status Date / Time metronidazole [From Flagyl] Allergy Hives Verified 09/27/20 22:42 Metronidazole HCl Allergy Hives Verified 09/27/20 22:42 [From Flagyl] Home Meds: Home Meds Pnv No.95/Ferrous Fum/Folic AC [ Caplet] 1 tab PO DAILY 06/05/19 [History] Sertraline HCl 1 tab PO DAILY 09/20/20 [History] Clindamycin HCl 300 mg PO BID 09/27/20 [History] Nitrofurantoin Hitchcock/Macrocryst [Nitrofurantoin Hitchcock-MCR] 100 mg PO BID 09/27/20 [History] Past Medical History - Past Health History Medical/Surgical History: Denies Medical/Surgical History HEENT History: Reports: Impaired Vision Other HEENT History: wears glasses Cardiovascular History: Reports: None Respiratory History: Reports: None Gastrointestinal History: Reports: None Genitourinary History: Reports: Renal Calculus, UTI, Recurrent 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 History: Reports: Polycystic Ovaries, , Spontaneous Musculoskeletal History: Reports: None Neurological History: Reports: Concussion, Migraines Psychiatric History: Reports: Anxiety Endocrine/Metabolic History: Reports: None Hematologic History: Reports: None Immunologic History: Reports: None Oncologic (Cancer) History: Reports: None Dermatologic History: Reports: None - Infectious Disease History Infectious Disease History: Reports: Chicken Pox Other Infectious Disease History: when a child - Past Surgical History Head Surgeries/Procedures: Reports: None HEENT Surgical History: Reports: None Cardiovascular Surgical History: Reports: None Respiratory Surgical History: Reports: None GI Surgical History: Reports: None Female Surgical History: Reports: Ureteral Stent Musculoskeletal Surgical History: Reports: None Social & Family History - Family History Family Medical History: No Pertinent Family History - Caffeine Use Caffeine Use: Reports: Soda Caffeine Use Comment: 2 drinks/day - Recreational Drug Use Recreational Drug Use: No - Living Situation & Occupation Occupation: Employed ED ROS GENERAL - Review of Systems Review Of Systems: See Below ED EXAM - Physical Exam Exam: See Below Course - Vital Signs Text/Narrative:: 35-year-old female presenting with vaginal bleeding and bilateral lower abdominal cramping, first trimester . Patient hemodynamically stable, afebrile, well-appearing, looks nontoxic. Differential diagnosis includes but is not limited to: Threatened , incomplete , complete , coagulopathy, vaginal trauma, anemia, ectopic , gestational trophoblastic disease, implantation bleeding, molar , and many others. 11:18 PM: Ordered pain medication, patient made NPO. test is positive, qualitative hCG is pending. Awaiting urinalysis and transvaginal OB ultrasound, will plan to perform a speculum pelvic examination. A+, RhoGAM not needed. b-HCG 16,645. 12:44 AM: Urinalysis shows moderate occult blood, positive nitrates, negative leukocyte esterase. Metabolic panel shows potassium 3.4, otherwise reassuring. INR is within normal limits. CBC is reassuring. Transvaginal OB ultrasound shows a gestational sac, yolk sac, and embryonic pole with cardiac activity of 169 bpm, corresponding to a age of 8 weeks and 4 days, normal-appearing ovaries. No significant free pelvic fluid. Cervical os is closed by physical examination and by ultrasound. Presentation is consistent with a threatened . Hemodynamically stable with normal hemoglobin. Pain is minimal and well controlled with acetaminophen. Plan: Patient is stable to discharge home with outpatient obstetrics clinic follow-up. Strict emergency department return precautions were provided, patient indicated understanding. All questions were answered prior to departure. Discharged in good condition. Last Recorded V/S: Last Vital Signs Temp 36.5 C 12/18/20 22:49 Pulse 66 09/27/20 23:46 Resp 14 09/27/20 23:46 BP 121/75 09/27/20 23:46 Pulse Ox 96 09/27/20 23:46 - Orders/Labs/Meds Orders: Active Orders 24 hr Category Date Time Status Pelvic Exam, Set Up [RC] ASDIRECTED Care 09/27/20 22:49 Active Pulse Oximetry [RC] ASDIRECTED Care 09/27/20 22:40 Active Nothing Per Oral Diet [DIET] Diet 09/27/20 Dinner Active Sodium Chloride 0.9% [Saline Flush] Med 09/27/20 22:40 Active 10 ml FLUSH ASDIRECTED PRN Sodium Chloride 0.9% [Saline Flush] Med 09/27/20 22:40 Active 2.5 ml FLUSH ASDIRECTED PRN Saline Lock Insert [OM.PC] Stat Oth 09/27/20 22:40 Ordered Medication Orders Sodium Chloride (Saline Flush) 2.5 ml FLUSH ASDIRECTED PRN PRN Reason: Keep Vein Open Sodium Chloride (Saline Flush) 10 ml FLUSH ASDIRECTED PRN PRN Reason: Keep Vein Open Labs: Laboratory Tests 09/27/20 09/27/20 09/27/20 Range/Units 22:18 22:50 22:52 WBC 10.71 (4.0-11.0) K/uL RBC 4.47 (4.30-5.90) M/uL Hgb 14.4 (12.0-16.0) g/dL Hct 42.9 (36.0-46.0) % MCV 96.0 (80.0-98.0) fL MCH 32.2 H (27.0-32.0) pg MCHC 33.6 (31.0-37.0) g/dL RDW Std Deviation 44.9 (28.0-62.0) fl RDW Coeff of Bianca 13 (11.0-15.0) % Plt Count 241 (150-400) K/uL MPV 8.80 (7.40-12.00) fL Neut % (Auto) 62.4 (48.0-80.0) % Lymph % (Auto) 29.7 (16.0-40.0) % Hitchcock % (Auto) 6.8 (0.0-15.0) % Eos % (Auto) 0.9 (0.0-7.0) % Baso % (Auto) 0.2 (0.0-1.5) % Neut # (Auto) 6.7 H (1.4-5.7) K/uL Lymph # (Auto) 3.2 H (0.6-2.4) K/uL Hitchcock # (Auto) 0.7 (0.0-0.8) K/uL Eos # (Auto) 0.1 (0.0-0.7) K/uL Baso # (Auto) 0.0 (0.0-0.1) K/uL Nucleated RBC % 0.0 /100WBC Nucleated RBCs # 0 K/uL INR Sodium (136-145) mmol/L Potassium (3.5-5.1) mmol/L Chloride (98-107) mmol/L Carbon Dioxide (21.0-32.0) mmol/L BUN (7.0-18.0) mg/dL Creatinine (0.6-1.0) mg/dL Est Cr Clr Drug Dosing mL/min Estimated GFR (MDRD) ml/min Glucose (74-106) mg/dL Calcium (8.5-10.1) mg/dL HCG, Qual (NEG) HCG, Quant 23816.0 mIU/mL Urine Color YELLOW Urine Appearance SLT CLOUDY Urine pH 6.0 (5.0-8.0) Ur Specific [place] >= 1.030 (1.001-1.035) Urine Protein NEGATIVE (NEGATIVE) mg/dL Urine Glucose (UA) NEGATIVE (NEGATIVE) mg/dL Urine Ketones NEGATIVE (NEGATIVE) mg/dL Urine Occult Blood MODERATE H (NEGATIVE) Urine Nitrite POSITIVE H (NEGATIVE) Urine Bilirubin NEGATIVE (NEGATIVE) Urine Urobilinogen 0.2 (<2.0) EU/dL Ur Leukocyte Esterase NEGATIVE (NEGATIVE) Urine RBC 1-3 (0-2/HPF) Urine WBC 0-3 (0-5/HPF) Ur Epithelial Cells FEW (NONE-FEW) Urine Bacteria FEW (NEGATIVE) Blood Type 09/27/20 09/27/20 09/27/20 Range/Units 22:52 22:52 22:52 WBC (4.0-11.0) K/uL RBC (4.30-5.90) M/uL Hgb (12.0-16.0) g/dL Hct (36.0-46.0) % MCV (80.0-98.0) fL MCH (27.0-32.0) pg MCHC (31.0-37.0) g/dL RDW Std Deviation (28.0-62.0) fl RDW Coeff of Bianca (11.0-15.0) % Plt Count (150-400) K/uL MPV (7.40-12.00) fL Neut % (Auto) (48.0-80.0) % Lymph % (Auto) (16.0-40.0) % Hitchcock % (Auto) (0.0-15.0) % Eos % (Auto) (0.0-7.0) % Baso % (Auto) (0.0-1.5) % Neut # (Auto) (1.4-5.7) K/uL Lymph # (Auto) (0.6-2.4) K/uL Hitchcock # (Auto) (0.0-0.8) K/uL Eos # (Auto) (0.0-0.7) K/uL Baso # (Auto) (0.0-0.1) K/uL Nucleated RBC % /100WBC Nucleated RBCs # K/uL INR 1.16 Sodium 139 (136-145) mmol/L Potassium 3.4 L (3.5-5.1) mmol/L Chloride 103 (98-107) mmol/L Carbon Dioxide 25.8 (21.0-32.0) mmol/L BUN 16 (7.0-18.0) mg/dL Creatinine 0.7 (0.6-1.0) mg/dL Est Cr Clr Drug Dosing 123.61 mL/min Estimated GFR (MDRD) > 60.0 ml/min Glucose 102 (74-106) mg/dL Calcium 9.4 (8.5-10.1) mg/dL HCG, Qual POSITIVE H (NEG) HCG, Quant mIU/mL Urine Color Urine Appearance Urine pH (5.0-8.0) Ur Specific [place] (1.001-1.035) Urine Protein (NEGATIVE) mg/dL Urine Glucose (UA) (NEGATIVE) mg/dL Urine Ketones (NEGATIVE) mg/dL Urine Occult Blood (NEGATIVE) Urine Nitrite (NEGATIVE) Urine Bilirubin (NEGATIVE) Urine Urobilinogen (<2.0) EU/dL Ur Leukocyte Esterase (NEGATIVE) Urine RBC (0-2/HPF) Urine WBC (0-5/HPF) Ur Epithelial Cells (NONE-FEW) Urine Bacteria (NEGATIVE) Blood Type 09/27/20 Range/Units 22:52 WBC (4.0-11.0) K/uL RBC (4.30-5.90) M/uL Hgb (12.0-16.0) g/dL Hct (36.0-46.0) % MCV (80.0-98.0) fL MCH (27.0-32.0) pg MCHC (31.0-37.0) g/dL RDW Std Deviation (28.0-62.0) fl RDW Coeff of Bianca (11.0-15.0) % Plt Count (150-400) K/uL MPV (7.40-12.00) fL Neut % (Auto) (48.0-80.0) % Lymph % (Auto) (16.0-40.0) % Hitchcock % (Auto) (0.0-15.0) % Eos % (Auto) (0.0-7.0) % Baso % (Auto) (0.0-1.5) % Neut # (Auto) (1.4-5.7) K/uL Lymph # (Auto) (0.6-2.4) K/uL Hitchcock # (Auto) (0.0-0.8) K/uL Eos # (Auto) (0.0-0.7) K/uL Baso # (Auto) (0.0-0.1) K/uL Nucleated RBC % /100WBC Nucleated RBCs # K/uL INR Sodium (136-145) mmol/L Potassium (3.5-5.1) mmol/L Chloride (98-107) mmol/L Carbon Dioxide (21.0-32.0) mmol/L BUN (7.0-18.0) mg/dL Creatinine (0.6-1.0) mg/dL Est Cr Clr Drug Dosing mL/min Estimated GFR (MDRD) ml/min Glucose (74-106) mg/dL Calcium (8.5-10.1) mg/dL HCG, Qual (NEG) HCG, Quant mIU/mL Urine Color Urine Appearance Urine pH (5.0-8.0) Ur Specific [place] (1.001-1.035) Urine Protein (NEGATIVE) mg/dL Urine Glucose (UA) (NEGATIVE) mg/dL Urine Ketones (NEGATIVE) mg/dL Urine Occult Blood (NEGATIVE) Urine Nitrite (NEGATIVE) Urine Bilirubin (NEGATIVE) Urine Urobilinogen (<2.0) EU/dL Ur Leukocyte Esterase (NEGATIVE) Urine RBC (0-2/HPF) Urine WBC (0-5/HPF) Ur Epithelial Cells (NONE-FEW) Urine Bacteria (NEGATIVE) Blood Type A POSITIVE Meds: Medications Generic Name Dose Route Start Last Admin Trade Name Freq PRN Reason Stop Dose Admin Sodium Chloride 2.5 ml 09/27/20 22:40 Saline Flush FLUSH ASDIRECTED PRN Keep Vein Open Sodium Chloride 10 ml 09/27/20 22:40 Saline Flush FLUSH ASDIRECTED PRN Keep Vein Open Discontinued Medications Generic Name Dose Route Start Last Admin Trade Name Freq PRN Reason Stop Dose Admin Acetaminophen 1,000 mg 09/27/20 23:17 09/27/20 23:29 Tylenol Extra Strength PO 09/27/20 23:18 1,000 mg ONETIME ONE Administration Oxycodone HCl 10 mg 09/27/20 23:17 09/27/20 23:30 Oxycodone PO 09/27/20 23:18 10 mg ONETIME ONE Administration Departure - Departure Time of Disposition: 00:45 Disposition: Home, Self-Care 01 Condition: Good Clinical Impression: Threatened in first trimester - Discharge Information *PRESCRIPTION DRUG MONITORING PROGRAM REVIEWED*: Not Applicable *COPY OF PRESCRIPTION DRUG MONITORING REPORT IN PATIENT MOIRA: Not Applicable Instructions: Threatened Miscarriage, Vaginal Bleeding During , First Trimester Forms: ED Department Discharge Additional Instructions: You were seen in the emergency department for vaginal bleeding and lower abdominal pain and . At this point your ultrasound, blood work, and vital signs all look reassuring. It is not uncommon for women to have vaginal bleeding during the first trimester of her . At this point the bleeding does not look dangerous. 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 The safest medication for pain is acetaminophen, do not take ibuprofen or naproxen as this can be harmful to your previous kidneys. You can also use a heating pad. Warning signs to come back to the ER include: Worsening pain, increasing vaginal bleeding, lightheadedness, or any other new or concerning symptoms. Please return the emergency department immediately if your symptoms worsen or if you feel worse. Thank you for choosing the [facility] emergency department in [place] for your medical needs today. It was a pleasure caring for you. The following information is given to patients seen in the emergency department who are being discharged. This information is to outline your options for follow-up care. We provide all patients seen in our emergency department with a follow-up referral. The need for follow-up, as well as the timing and circumstances, are variable depending upon the specifics of your emergency department visit. If you don't have a primary care physician on staff, we will provide you with a referral. We always advise you to contact your personal physician following an emergency department visit to inform them of the circumstance of the visit and for follow-up with them and/or the need for any referrals to a consulting specialist. The emergency department will also refer you to a specialist when appropriate. This referral assures that you have the opportunity for follow-up care with a specialist. All of these measure are taken in an effort to provide you with optimal care, which includes your follow-up. Under all circumstances we always encourage you to contact your private physician who remains a resource for coordinating your care. When calling for follow-up care, please make the office aware that this follow-up is from your recent emergency room visit. If for any reason you are refused follow-up, please contact the [facility] Emergency Department at and asked to speak to the emergency department charge nurse. If you do not have a primary care physician that is caring for you, you can contact these clinics below to set up an appointment to establish care: [facility] - Primary Care [address] [place] [id number] [facility] [address] [place] [id number] Sepsis Event Note (ED) - Evaluation Sepsis Screening Result: No Definite Risk - Focused Exam Vital Signs: Vital Signs Temp Pulse Resp BP Pulse Ox 09/27/20 23:46 66 14 121/75 96 09/27/20 22:49 36.5 C 72 16 131/87 97 - My Orders Last 24 Hours: My Active Orders 09/27/20 Dinner Nothing Per Oral Diet [DIET] 09/27/20 22:40 Pulse Oximetry [RC] ASDIRECTED Sodium Chloride 0.9% [Saline Flush] 10 ml FLUSH ASDIRECTED PRN Sodium Chloride 0.9% [Saline Flush] 2.5 ml FLUSH ASDIRECTED PRN Saline Lock Insert [OM.PC] Stat 09/27/20 22:49 Pelvic Exam, Set Up [RC] ASDIRECTED - Assessment/Plan Last 24 Hours: My Active Orders 09/27/20 Dinner Nothing Per Oral Diet [DIET] 09/27/20 22:40 Pulse Oximetry [RC] ASDIRECTED Sodium Chloride 0.9% [Saline Flush] 10 ml FLUSH ASDIRECTED PRN Sodium Chloride 0.9% [Saline Flush] 2.5 ml FLUSH ASDIRECTED PRN Saline Lock Insert [OM.PC] Stat 09/27/20 22:49 Pelvic Exam, Set Up [RC] ASDIRECTED
--- NOTE | 2020-09-28 00:32 | US ---
OBSTETRICAL ULTRASOUND Technique: Transvaginal scanning of the pelvis was performed. Findings: The uterus contains a gestational sac. The gestational sac contains a yolk sac and an embryonic pole which exhibits cardiac activity with a heart rate of 169 BPM. The crown-rump length corresponds to an estimated menstrual age of 8 weeks 4 days and an NEHA of 05/05/2021. The ovaries appear within normal limits bilaterally. No significant free pelvic fluid is identified. IMPRESSION: Live early intrauterine with estimated menstrual age of 8 weeks 4 days and NEHA of 05/05/2021. ESTEE MILAN MD [employer] Dictated by Michel Milan MD @ 09/28/2020 12:31:48 AM Dictated by: Michel Milan MD @ 09/28/2020 00:31:58 (Electronically Signed)
[2020-09-28 03:11] VITALS: BP 106/72; PULSE 72
== END 2020-09-28 01:10 | disposition home or self-care (01) ==
LOC: MW.ED 22:34
DX: O20.0 Threatened abortion (principal); O99.341 Other mental disorders complicating pregnancy, first trimester; F41.9 Anxiety disorder, unspecified; Z79.899 Other long term (current) drug therapy; Z88.1 Allergy status to other antibiotic agents; Z3A.08 8 weeks gestation of pregnancy
CPT/HCPCS: 36415; 76817; 80048; 81001; 84702; 84703; 85025; 85610; 86900; 86901; 99284; A9270; 99283

== ENCOUNTER 2020-10-01 04:48 | Emergency (ER) | payer OTHER ==
--- NOTE | 2020-10-01 04:55 | EDM.PDOC ---
ED HPI GENERAL MEDICAL PROBLEM - General Stated Complaint: POSSIBLE MISCARRIAGE AT ABOUT 9 WKS Time Seen by Provider: 10/01/20 04:49 Source of Information: Reports: Patient History Limitations: Reports: No Limitations - History of Present Illness INITIAL COMMENTS - FREE TEXT/NARRATIVE: 35-year-old female approximately 9 weeks presents for vaginal bleeding. Patient was seen here 4 days ago for similar and had an ultrasound revealing live intrauterine and physical exam revealing closed cervical os. Of note she is also currently on clindamycin and Macrobid for bacterial vaginosis and UTI. Patient notes that since discharge 4 days ago she was having on and off light vaginal bleeding. Woke up tonight with lower abdominal cramping pains and heavy vaginal bleeding with passage of clots and tissue. Bleeding has slowed since the initial heavy event but she is still having bright red bleeding with clots. She did have an episode of feeling lightheaded and presyncopal. Bilateral Lower Abdomen Pain Score (Numeric/FACES): 5 - Related Data Allergies Allergy/AdvReac Type Severity Reaction Status Date / Time metronidazole [From Flagyl] Allergy Hives Verified 09/27/20 22:42 Metronidazole HCl Allergy Hives Verified 09/27/20 22:42 [From Flagyl] Home Meds: Home Meds Pnv No.95/Ferrous Fum/Folic AC [ Caplet] 1 tab PO DAILY 06/05/19 [History] Sertraline HCl 1 tab PO DAILY 09/20/20 [History] Clindamycin HCl 300 mg PO BID 09/27/20 [History] Nitrofurantoin [place]/Macrocryst [Nitrofurantoin [place]-MCR] 100 mg PO BID 09/27/20 [History] Acetaminophen/oxyCODONE [Percocet 325-5 MG] 1 each PO Q4H PRN #12 tab 10/01/20 [Rx] Ketorolac [Toradol] 10 mg PO Q6H PRN #12 tab 10/01/20 [Rx] Past Medical History - Past Health History Medical/Surgical History: Denies Medical/Surgical History HEENT History: Reports: Impaired Vision Other HEENT History: wears glasses Cardiovascular History: Reports: None Respiratory History: Reports: None Gastrointestinal History: Reports: None Genitourinary History: Reports: Renal Calculus, UTI, Recurrent 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: Reports: Polycystic Ovaries, , Spontaneous Musculoskeletal History: Reports: None Neurological History: Reports: Concussion, Migraines Psychiatric History: Reports: Anxiety Endocrine/Metabolic History: Reports: None Hematologic History: Reports: None Immunologic History: Reports: None Oncologic (Cancer) History: Reports: None Dermatologic History: Reports: None - Infectious Disease History Infectious Disease History: Reports: Chicken Pox Other Infectious Disease History: when a child - Past Surgical History Head Surgeries/Procedures: Reports: None HEENT Surgical History: Reports: None Cardiovascular Surgical History: Reports: None Respiratory Surgical History: Reports: None GI Surgical History: Reports: None Female Surgical History: Reports: Ureteral Stent Musculoskeletal Surgical History: Reports: None Social & Family History - Family History Family Medical History: No Pertinent Family History - Caffeine Use Caffeine Use: Reports: Soda Caffeine Use Comment: 2 drinks/day - Living Situation & Occupation Occupation: Employed ED ROS GENERAL - Review of Systems Review Of Systems: Comprehensive ROS is negative, except as noted in HPI. ED EXAM, GENERAL - Physical Exam Exam: See Below Exam Limited By: No Limitations General Appearance: Alert, WD/WN, No Apparent Distress Throat/Mouth: Normal Voice, No Airway Compromise Head: Atraumatic, Normocephalic Neck: Normal Inspection Respiratory/Chest: No Respiratory Distress, No Accessory Muscle Use Cardiovascular: Normal Peripheral Pulses GI/Abdominal: Soft, Non-Tender (Female) Exam: Normal External Exam, Other (Large amount of clotted blood in posterior vaginal vault with active bright red blood, cervical os feels open, no adnexal masses or tenderness, no CMT) Extremities: Normal Inspection Neurological: Alert Psychiatric: Normal Affect, Normal Mood Skin Exam: Warm, Dry, Intact, Normal Color Course - Vital Signs Last Recorded V/S: Last Vital Signs Temp 97.0 F 10/01/20 04:59 Pulse 78 10/01/20 04:59 Resp 18 10/01/20 04:59 BP 106/73 10/01/20 04:59 Pulse Ox - Orders/Labs/Meds Orders: Active Orders 24 hr Category Date Time Status OB 1st Tri NT Measure [US] Stat Exams 10/01/20 05:12 Taken UA W/ABEL RFLX IF INDICATED [URIN] Stat Lab 10/01/20 04:53 Ordered Labs: Laboratory Tests 10/01/20 10/01/20 Range/Units 05:25 05:25 WBC 15.28 H (4.0-11.0) K/uL RBC 4.36 (4.30-5.90) M/uL Hgb 14.0 (12.0-16.0) g/dL Hct 41.8 (36.0-46.0) % MCV 95.9 (80.0-98.0) fL MCH 32.1 H (27.0-32.0) pg MCHC 33.5 (31.0-37.0) g/dL RDW Std Deviation 45.1 (28.0-62.0) fl RDW Coeff of Bianca 13 (11.0-15.0) % Plt Count 247 (150-400) K/uL MPV 8.90 (7.40-12.00) fL Neut % (Auto) 73.6 (48.0-80.0) % Lymph % (Auto) 19.6 (16.0-40.0) % [place] % (Auto) 5.8 (0.0-15.0) % Eos % (Auto) 0.9 (0.0-7.0) % Baso % (Auto) 0.1 (0.0-1.5) % Neut # (Auto) 11.3 H (1.4-5.7) K/uL Lymph # (Auto) 3.0 H (0.6-2.4) K/uL [place] # (Auto) 0.9 H (0.0-0.8) K/uL Eos # (Auto) 0.1 (0.0-0.7) K/uL Baso # (Auto) 0.0 (0.0-0.1) K/uL Nucleated RBC % 0.0 /100WBC Nucleated RBCs # 0 K/uL Sodium 139 (136-145) mmol/L Potassium 4.0 (3.5-5.1) mmol/L Chloride 103 (98-107) mmol/L Carbon Dioxide 23.7 (21.0-32.0) mmol/L BUN 13 (7.0-18.0) mg/dL Creatinine 0.7 (0.6-1.0) mg/dL Est Cr Clr Drug Dosing 123.61 mL/min Estimated GFR (MDRD) > 60.0 ml/min Glucose 109 H (74-106) mg/dL Calcium 9.1 (8.5-10.1) mg/dL HCG, Quant 8753.0 mIU/mL Meds: Medications Discontinued Medications Generic Name Dose Route Start Last Admin Trade Name Mayra PRN Reason Stop Dose Admin Morphine Sulfate 4 mg 10/01/20 05:22 10/01/20 05:26 Morphine IVPUSH 10/01/20 05:23 4 mg ONETIME ONE Administration Ondansetron HCl 4 mg 10/01/20 05:22 10/01/20 05:26 Zofran IVPUSH 10/01/20 05:23 4 mg ONETIME ONE Administration - Re-Assessments/Exams Free Text/Narrative Re-Assessment/Exam: 10/01/20 04:54 Blood type is A positive; RhoGAM not indicated 10/01/20 05:04 We will get labs including quantitative beta-hCG. Will get ultrasound. Physical exam is concerning for with open cervical os, clotted and bright red blood per vagina 10/01/20 06:34 Patient's beta-hCG is roughly half of what it was 4 days ago. Wet read ultrasound reveals thickened endometrium with no evidence of intrauterine ges tation. Ovaries appear normal. Will discharge with analgesia and COMMUNITY SERVICES MANAGER follow-up Departure - Departure Time of Disposition: 06:35 Disposition: Home, Self-Care 01 Condition: Good Clinical Impression: Complete - Discharge Information Instructions: Miscarriage, [id number] Referrals: PCP,None [Primary Care Provider] - Additional Instructions: The following information is given to patients seen in the emergency department who are being discharged to home. This information is to outline your options for follow-up care. We provide all patients seen in our emergency department with a follow-up referral. The need for follow-up, as well as the timing and circumstances, are variable depending upon the specifics of your emergency department visit. If you don't have a primary care physician on staff, we will provide you with a referral. We always advise you to contact your personal physician following an emergency department visit to inform them of the circumstance of the visit and for follow-up with them and/or the need for any referrals to a consulting specialist. The emergency department will also refer you to a specialist when appropriate. This referral assures that you have the opportunity for follow-up care with a specialist. All of these measure are taken in an effort to provide you with optimal care, which includes your follow-up. Under all circumstances we always encourage you to contact your private physician who remains a resource for coordinating your care. When calling for follow-up care, please make the office aware that this follow-up is from your recent emergency room visit. If for any reason you are refused follow-up, please contact the [facility] Emergency Department at and asked to speak to the emergency department charge nurse. Please follow up with your primary care physician. If you do not have a primary care physician, see below: [facility] [address] [place] [id number] My [facility] [address] [place] [address] Sepsis Event Note (ED) - Focused Exam Vital Signs: Vital Signs Temp Pulse Resp BP 10/01/20 04:59 97.0 F 78 18 106/73 - My Orders Last 24 Hours: My Active Orders 10/01/20 04:53 UA W/ABEL RFLX IF INDICATED [URIN] Stat 10/01/20 05:12 OB 1st Tri NT Measure [US] Stat - Assessment/Plan Last 24 Hours: My Active Orders 10/01/20 04:53 UA W/ABEL RFLX IF INDICATED [URIN] Stat 10/01/20 05:12 OB 1st Tri NT Measure [US] Stat
[2020-10-01] MEDS ORDERED: Ondansetron 4 MG/2 ML SDV IVPUSH ONE (05:22)
[2020-10-01] MEDS ORDERED: Morphine 4 MG/ML Syringe IVPUSH ONE (05:22)
[2020-10-01 06:08] LABS: BLOOD UREA NITROGEN,BUN 13 mg/dL (7.0-18.0); CARBON DIOXIDE,CO2 23.7 mmol/L (21.0-32.0); CHLORIDE,CL 103 mmol/L (98-107); GLUCOSE RANDOM 109 mg/dL (74-106); SODIUM,NA 139 mmol/L (136-145)
--- NOTE | 2020-10-01 06:45 | US ---
INDICATION: with heavy vaginal bleeding. TECHNIQUE: Ultrasound OB pelvis transvaginal. Real-time olivia-scale imaging of the pelvis was performed. COMPARISON: September 27, 2020. FINDINGS: No sign of intrauterine or ectopic on today`s exam. Endometrium is empty and thickened measuring 27 mm. No sign of retained fluid or tissue. The ovaries are of normal size. There are no suspicious fluid collections noted in the cul-de-sac. IMPRESSION: Findings consistent with a spontaneous . No signs of on today`s exam. Dictated by Anam German MD @ Oct 01 2020 6:39AM Signed by Dr. Anam German @ Oct 01 2020 6:43AM
[2020-10-01 07:01] VITALS: BP 110/68; PULSE 88
== END 2020-10-01 06:50 | disposition home or self-care (01) ==
LOC: MW.ED 04:48
DX: O03.9 Complete or unspecified spontaneous abortion without complication (principal); F41.9 Anxiety disorder, unspecified; Z79.899 Other long term (current) drug therapy; Z88.1 Allergy status to other antibiotic agents
CPT/HCPCS: 36415; 76817; 80048; 81001; 84702; 85025; 96374; 96375; 99284; J2270; J2405; 76813; 76816-26; 99283

== ENCOUNTER 2021-08-19 17:02 | Inpatient (IN) | payer OTHER ==
[2021-08-19] MEDS ORDERED: Ampicillin 2 GM in Sodium Chloride 0.9% 100 ML IV ONE (17:15)
[2021-08-19] MEDS ORDERED: Oxytocin/0.9 % Sodium Chloride 30 UNIT/500 ML BAG IV SCH ×2 (17:15→23:00)
[2021-08-19] MEDS ORDERED: Water For Irrigation,Sterile 1,000 ML Container IRR PRN (17:15)
[2021-08-19] MEDS ORDERED: Lidocaine 1% 50 ML MDV INJECT PRN (17:15)
[2021-08-19] MEDS ORDERED: Misoprostol 200 MCG Tab PO PRN (17:15)
[2021-08-19] MEDS ORDERED: Nalbuphine 10 MG/1 ML Vial IVPUSH PRN (17:15)
[2021-08-19] MEDS ORDERED: Butorphanol 1 MG/ML SDV IVPUSH PRN (17:15)
[2021-08-19] MEDS ORDERED: Methylergonovine 0.2 MG/1 ML Amp IM PRN (17:15)
[2021-08-19] MEDS ORDERED: Sodium Chloride 0.9% 20 ML SDV IV PRN (17:15)
[2021-08-19] MEDS ORDERED: Sodium Chloride 0.9% 2.5 ML Syringe FLUSH PRN (17:15)
[2021-08-19] MEDS ORDERED: Tranexamic Acid 1,000 MG in Sodium Chloride 0.9% 100 ML IV PRN (17:15)
[2021-08-19] MEDS ORDERED: Sodium Chloride 0.9% 10 ML Syringe FLUSH PRN (17:15)
[2021-08-19] MEDS ORDERED: Carboprost Tromethamine 250 MCG/1 ML Amp IM PRN (17:15)
[2021-08-19] MEDS ORDERED: Ampicillin 2 GM Vial ONE (17:21)
[2021-08-19] MEDS ORDERED: Sodium Chloride 0.9% 100 ML ONE (17:21)
[2021-08-19] MEDS: Lactated Ringers 1,000 ML IV SCH ×3 (17:26→20:33)
[2021-08-19] MEDS ORDERED: Ropivacaine HCl/PF 200 ML ONE (18:24)
--- NOTE | 2021-08-19 18:46 | PCM.PREANE ---
Preanesthetic Assessment - Anesthesia/Transfusion/Family Hx Anesthesia History: Prior Anesthesia Without Reaction Other Type of Anesthesia Reaction Comment: DENIES PROBLEMS WITH ANESTHESIA Transfusion History: No Prior Transfusion(s) - Review of Systems General: No Symptoms Pulmonary: No Symptoms Cardiovascular: No Symptoms Gastrointestinal: No Symptoms Neurological: No Symptoms Other: Reports: None - Physical Assessment NPO Status Date: 08/19/21 NPO Status Time: 12:00 Height: 5 ft 10 in Weight: 204 lb ASA Class: 2 Mental Status: Alert & Oriented x3 Airway Class: Mallampati = 2 Dentition: Reports: Normal Dentition Thyro-Mental Finger Breadths: 3 Mouth Opening Finger Breadths: 3 ROM/Head Extension: Full Lungs: Clear to Auscultation, Normal Respiratory Effort Cardiovascular: Regular Rate, Regular Rhythm - Lab Values: Laboratory Last Values WBC 12.85 K/uL (4.0-11.0) H 08/19/21 17:10 RBC 3.86 M/uL (4.30-5.90) L 08/19/21 17:10 Hgb 12.6 g/dL (12.0-16.0) 08/19/21 17:10 Hct 36.8 % (36.0-46.0) 08/19/21 17:10 MCV 95.3 fL (80.0-98.0) 08/19/21 17:10 MCH 32.6 pg (27.0-32.0) H 08/19/21 17:10 MCHC 34.2 g/dL (31.0-37.0) 08/19/21 17:10 RDW Std Deviation 51.7 fl (28.0-62.0) 08/19/21 17:10 RDW Coeff of Bianca 15 % (11.0-15.0) 08/19/21 17:10 Plt Count 269 K/uL (150-400) 08/19/21 17:10 MPV 9.70 fL (7.40-12.00) 08/19/21 17:10 Nucleated RBC % 0.0 /100WBC 08/19/21 17:10 Nucleated RBCs # 0 K/uL 08/19/21 17:10 - Allergies Allergies/Adverse Reactions: Allergies Allergy/AdvReac Type Severity Reaction Status Date / Time metronidazole [From Flagyl] Allergy Hives Verified 07/28/21 20:02 Metronidazole HCl Allergy Hives Verified 07/28/21 20:02 [From Flagyl] - Acknowledgements Anesthesia Type Planned: Epidural Pt an Appropriate Candidate for the Planned Anesthesia: Yes Alternatives and Risks of Anesthesia Discussed w Pt/Guardian: Yes Pt/Guardian Understands and Agrees with Anesthesia Plan: Yes PreAnesthesia Questionnaire - Past Health History Medical/Surgical History: Denies Medical/Surgical History HEENT History: Reports: Impaired Vision Other HEENT History: wears glasses Cardiovascular History: Reports: None Respiratory History: Reports: None Gastrointestinal History: Reports: None Genitourinary History: Reports: Renal Calculus, UTI, Recurrent 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: Polycystic Ovaries, , 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 Musculoskeletal History: Reports: None Neurological History: Reports: Concussion, Migraines Psychiatric History: Reports: Anxiety Endocrine/Metabolic History: Reports: None Hematologic History: Reports: None Immunologic History: Reports: None Oncologic (Cancer) History: Reports: None Dermatologic History: Reports: None - Infectious Disease History Infectious Disease History: Reports: Chicken Pox Other Infectious Disease History: when a child - Past Surgical History Head Surgeries/Procedures: Reports: None HEENT Surgical History: Reports: None Cardiovascular Surgical History: Reports: None Respiratory Surgical History: Reports: None GI Surgical History: Reports: None Female Surgical History: Reports: Ureteral Stent Musculoskeletal Surgical History: Reports: None - HOME MEDS Home Medications: Home Meds Pnv No.95/Ferrous Fum/Folic AC [ Caplet] 1 tab PO DAILY 06/05/19 [History] Sertraline HCl 1 tab PO DAILY 09/20/20 [History] Nitrofurantoin [place]/Macrocryst [Nitrofurantoin [place]-MCR] 100 mg PO BID 09/27/20 [History] Acyclovir [Zovirax] 400 mg PO 07/28/21 [History] Famotidine [Pepcid] 40 mg PO BID 07/28/21 [History] - CURRENT (IN HOUSE) MEDS Current Meds: Current Medications Butorphanol Tartrate (Butorphanol 1 Mg/Ml Sdv) 1 mg IVPUSH Q1H PRN PRN Reason: Pain (severe 7-10) Carboprost Tromethamine (Carboprost Tromethamine 250 Mcg/1 Ml Amp) 250 mcg IM ASDIRECTED PRN PRN Reason: Post Hemorrhage Oxytocin/Sodium Chloride (Oxytocin 30 Unit In Ns 0.9% 500 Ml Premix) 30 unit in 500 mls @ 500 mls/hr IV TITRATE [facility] Tranexamic Acid 1,000 mg/ (Sodium Chloride) 110 mls @ 660 mls/hr IV ONETIME PRN PRN Reason: Bleeding Lactated Ringer's (Ringers, Lactated) 1,000 mls @ 150 mls/hr IV ASDIRECTED [facility] Last Infusion: 08/19/21 17:58 Dose: 999 mls/hr Documented by: Lidocaine HCl (Lidocaine 1% 50 Ml Mdv) 50 ml INJECT ONETIME PRN PRN Reason: Laceration repair Methylergonovine Maleate (Methylergonovine 0.2 Mg/1 Ml Amp) 0.2 mg IM ASDIRECTED PRN PRN Reason: Post Hemorrhage Misoprostol (Misoprostol 200 Mcg Tab) 200 mcg PO ONETIME PRN PRN Reason: Post Hemorrhage Nalbuphine HCl (Nalbuphine 10 Mg/1 Ml Vial) 10 mg IVPUSH Q1H PRN PRN Reason: Pain (severe 7-10) Sodium Chloride (Sodium Chloride 0.9% 10 Ml Syringe) 10 ml FLUSH ASDIRECTED PRN PRN Reason: Keep Vein Open Sodium Chloride (Sodium Chloride 0.9% 2.5 Ml Syringe) 2.5 ml FLUSH ASDIRECTED PRN PRN Reason: Keep Vein Open Sodium Chloride (Sodium Chloride 0.9% 20 Ml Sdv) 10 ml IV ASDIRECTED PRN PRN Reason: IV Use Sterile Water (Water For Irrigation,Sterile 1,000 Ml Container) 1,000 ml IRR ASDIRECTED PRN PRN Reason: delivery Discontinued Medications Ampicillin Sodium (Ampicillin 2 Gm Vial) Confirm Administered Dose 2 gm .ROUTE .STK-MED ONE Stop: 08/19/21 17:22 Ampicillin Sodium 2 gm/ Sodium (Chloride) 100 mls @ 200 mls/hr IV ONETIME ONE Stop: 08/19/21 17:44 Last Admin: 08/19/21 17:28 Dose: 200 mls/hr Documented by: Sodium Chloride (Normal Saline Advbag) Confirm Administered Dose 100 mls @ as directed .ROUTE .STK-MED ONE Stop: 08/19/21 17:22 Ropivacaine (Naropin 0.2%) Confirm Administered Dose 200 mls @ as directed .ROUTE .STK-MED ONE Stop: 08/19/21 18:25
--- NOTE | 2021-08-19 18:47 | PCM.POSTAN ---
POST ANESTHESIA ASSESSMENT - MENTAL STATUS Mental Status: Alert, Oriented - RESPIRATORY Respiratory Status: Respiratory Rate WNL, Airway Patent, O2 Saturation Stable - CARDIOVASCULAR CV Status: Pulse Rate WNL, Blood Pressure Stable - GASTROINTESTINAL GI Status: No Symptoms - POST OP HYDRATION Hydration Status: Adequate & Stable
[2021-08-19] MEDS ORDERED: ePHEDrine 50 MG/ML SDV IVPUSH PRN ×2 (18:49)
--- NOTE | 2021-08-19 18:49 | PCM.SN.2 ---
- Pre-Procedure Checklist Attending Provider Aware: Yes Chart Reviewed: Yes Consent Signed: Yes Labs Reviewed: Yes VS/FHR Reviewed: Yes Patient Identification Confirmation Method: Reports: Chart Visual, ID Band Visual, Verbal Patient Pt an Appropriate Candidate for the Planned Anesthesia: Yes Alternatives and Risks of Anesthesia Discussed w Pt/Guardian: Yes - Procedure Procedure Start Date: 08/19/21 Procedure Start Time: 18:[address]: Reports: Blood Pressure, Heart Rate, SPO2 Functional IV: Yes Safety Measures: Reports: Patient Identified, Procedure Verified, Site Verified, Procedure Time Out Patient Position: Reports: Sitting Prep: Reports: Alcohol x3, Betadine x3 Local Anesthetic: Reports: Intradermal Wheal w Lidocaine 1% Regional Placement Level: Reports: L3-4 Needle: Reports: 17 g Touhy Approach: Reports: Midline Technique: Reports: CORY Glass Syringe Parasthesia: Reports: None Fluid Obtained: Reports: None Test Dose Medication: Reports: Lidocaine 1.5% w Epinephrine 1:200,000 Test Dose Response: Reports: Negative Continuous Infusion Start Time: 18:30 Continuous Infusion Medication: 0.2% naropin Continuous Infusion Rate: 18 Continuous Infusion PCS Bolus Option: 4 Continuous Infusion Lockout Dose (cc/hr): 30 Patient Position Post Placement: Reports: Supline/ANOOP VS and FHR Monitored in Unit Post Placement: Yes Procedure End Date: 08/19/21 Procedure End Time: 19:15
[2021-08-19] MEDS ORDERED: Ropivacaine/PF 400 MG/200 ML PCA EPIDUR SCH (19:00)
[2021-08-19] MEDS ORDERED: Acetaminophen 500 MG Tab ONE (20:06)
[2021-08-19] MEDS: Acetaminophen 500 MG Tab PO PRN (20:07)
[2021-08-19] MEDS ORDERED: Ampicillin 1 GM Vial ONE (20:47)
[2021-08-19] MEDS ORDERED: Sodium Chloride 0.9% 50 ML ONE (20:48)
[2021-08-19] MEDS: Ampicillin 1 GM in Sodium Chloride 0.9% 50 ML IV SCH (20:58)
--- NOTE | 2021-08-19 22:21 | PCM.LDHP ---
L&D History of Present Illness - General Date of Service: 08/19/21 Admit Problem/Dx: Patient Status Order with Admit Dx/Problem 08/19/21 17:15 Patient Status [ADT] Routine Admission Diagnosis/Problem Admission Diagnosis/Problem Source of Information: Patient History Limitations: Reports: No Limitations - History of Present Illness Introduction:: 35yo @ 38w4d GA presented with Ctx and cervical dilatation of 4cm, checked during her routine OB visit, earlier today. She denies LOF, or VB. 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 Pain Score: 2 - Related Data Allergies/Adverse Reactions: Allergies Allergy/AdvReac Type Severity Reaction Status Date / Time metronidazole [From Flagyl] Allergy Hives Verified 07/28/21 20:02 Metronidazole HCl Allergy Hives Verified 07/28/21 20:02 [From Flagyl] Home Medications: Home Meds Pnv No.95/Ferrous Fum/Folic AC [ Caplet] 1 tab PO DAILY 06/05/19 [History] Sertraline HCl 1 tab PO DAILY 09/20/20 [History] Nitrofurantoin Eaton/Macrocryst [Nitrofurantoin Eaton-MCR] 100 mg PO BID 09/27/20 [History] Acyclovir [Zovirax] 400 mg PO 07/28/21 [History] Famotidine [Pepcid] 40 mg PO BID 07/28/21 [History] Past Medical History - Past Health History Medical/Surgical History: Denies Medical/Surgical History HEENT History: Reports: Impaired Vision Other HEENT History: wears glasses Cardiovascular History: Reports: None Respiratory History: Reports: None Gastrointestinal History: Reports: None Genitourinary History: Reports: Renal Calculus, UTI, Recurrent BSS SOLUTION ARCHITECT History: Reports: Polycystic Ovaries, , Spontaneous Musculoskeletal History: Reports: None Neurological History: Reports: Concussion, Migraines Psychiatric History: Reports: Anxiety Endocrine/Metabolic History: Reports: None Hematologic History: Reports: None Immunologic History: Reports: None Oncologic (Cancer) History: Reports: None Dermatologic History: Reports: None - Infectious Disease History Infectious Disease History: Reports: Chicken Pox Other Infectious Disease History: when a child - Past Surgical History Head Surgeries/Procedures: Reports: None HEENT Surgical History: Reports: None Cardiovascular Surgical History: Reports: None Respiratory Surgical History: Reports: None GI Surgical History: Reports: None Female Surgical History: Reports: Ureteral Stent Musculoskeletal Surgical History: Reports: None Social & Family History - Family History Family Medical History: No Pertinent Family History Cardiac: Reports: Hypertension Other Cardiac Family History: maternal grandpa Respiratory: Reports: COPD Other Respiratory Family Hisory: maternal grandpa; maternal grandma emphysema - Tobacco Use Tobacco Use Status *Q: Former Tobacco User Used Tobacco, but Quit: Yes Month/Year Tobacco Last Used: n/a - Caffeine Use Caffeine Use: Reports: None Caffeine Use Comment: 2 drinks/day - Recreational Drug Use Recreational Drug Use: No - Living Situation & Occupation Occupation: Employed H&P Review of Systems - Review of Systems: Review Of Systems: See Below General: Reports: No Symptoms HEENT: Reports: No Symptoms Pulmonary: Reports: No Symptoms Cardiovascular: Reports: No Symptoms Gastrointestinal: Reports: No Symptoms Genitourinary: Reports: No Symptoms Musculoskeletal: Reports: No Symptoms, Muscle Pain Psychiatric: Reports: No Symptoms Neurological: Reports: No Symptoms Hematologic/Lymphatic: Reports: No Symptoms Immunologic: Reports: No Symptoms L&D Exam - Exam Exam: See Below - Vital Signs Weight: 92.533 kg - OB Specific Contraction Intensity: Mild to Moderate Movement: Active Heart Tones: Present Heart Rate (FHR) Variability: Moderate (6-25 bpm) Presentation: Vertex Estimated Weight: 7.5lbs - Bautista Score Bautista Score Cervix Position: Midposition Bautista Score Consistency: Medium Bautista Score Effacement: >80% Bautista Score Dilation: > 5 cm Bautista Score 's Station: -1 ,0 Bautista Score Total: 10 - Exam General: Alert, Oriented Lungs: Normal Respiratory Effort Cardiovascular: Regular Rate GI/Abdominal Exam: Soft, Non-Tender Extremities: Normal Inspection, Normal Range of Motion Psychiatric: Alert, Normal Affect, Normal Mood - Patient Data Lab Results Last 24 hrs: Laboratory Results - last 24 hr 08/19/21 08/19/21 Range/Units 17:10 17:10 WBC 12.85 H (4.0-11.0) K/uL RBC 3.86 L (4.30-5.90) M/uL Hgb 12.6 (12.0-16.0) g/dL Hct 36.8 (36.0-46.0) % MCV 95.3 (80.0-98.0) fL MCH 32.6 H (27.0-32.0) pg MCHC 34.2 (31.0-37.0) g/dL RDW Std Deviation 51.7 (28.0-62.0) fl RDW Coeff of Bianca 15 (11.0-15.0) % Plt Count 269 (150-400) K/uL MPV 9.70 (7.40-12.00) fL Nucleated RBC % 0.0 /100WBC Nucleated RBCs # 0 K/uL Blood Type A POSITIVE Antibody Screen NEGATIVE Result Diagrams: 08/19/21 17:10 - Problem List (1) Labor established SNOMED Code(s): 95715556 ICD Code: VLC9643 - Status: Acute Current Visit: Yes (2) Term SNOMED Code(s): 61791656 ICD Code: Z34.90 - ENCNTR FOR SUPRVSN OF NORMAL , UNSP, UNSP TRIMESTER Status: Acute Current Visit: Yes Problem List Initiated/Reviewed/Updated: Yes Orders Last 24hrs: Active Orders 24 hr Category Date Time Status Patient Status [ADT] Routine ADT 08/19/21 17:15 Active Communication Order [RC] PRN Care 08/19/21 18:49 Active Heart Tones [RC] CONTINUOUS Care 08/19/21 17:15 Active Non Stress Test [RC] PER UNIT ROUTINE Care 08/19/21 17:15 Active May Shower [RC] ASDIRECTED Care 08/19/21 17:15 Active Notify Provider [RC] PRN Care 08/19/21 17:15 Active Up ad Solange [RC] ASDIRECTED Care 08/19/21 17:15 Active Vaginal Exam [RC] PRN Care 08/19/21 17:15 Active Vital Signs [RC] PER UNIT ROUTINE Care 08/19/21 17:15 Active RPR (SYPHILIS SERO) W/ RFLX [REF] Routine Lab 08/19/21 17:10 Received Acetaminophen [Tylenol Extra Strength] Med 08/19/21 20:04 Active 1,000 mg PO Q6H PRN Ampicillin 1 gm Med 08/19/21 21:00 Active Sodium Chloride 0.9% [Normal Saline AdvBag] 50 ml IV Q4H Butorphanol [Stadol] Med 08/19/21 17:15 Active 1 mg IVPUSH Q1H PRN Carboprost Tromethamine [Hemabate DS] Med 08/19/21 17:15 Active 250 mcg IM ASDIRECTED PRN Lactated Ringers [Ringers, Lactated] 1,000 ml Med 08/19/21 17:15 Active IV ASDIRECTED Lidocaine 1% [Xylocaine 1%] Med 08/19/21 17:15 Active 50 ml INJECT ONETIME PRN Methylergonovine [Methergine] Med 08/19/21 17:15 Active 0.2 mg IM ASDIRECTED PRN Nalbuphine [Nubain] Med 08/19/21 17:15 Active 10 mg IVPUSH Q1H PRN Oxytocin/0.9 % Sodium Chloride [Oxytocin 30 Unit in NS Med 08/19/21 17:15 Active 0.9% 500 ML Premix] 30 unit in 500 ml IV TITRATE Phenylephrine HCl In 0.9% NaCl [Phenylephrine 1 MG/10 Med 08/19/21 18:49 Active ML-NS] 0.1 mg IVPUSH Q1M PRN Ropivacaine HCl/PF [Ropivacaine 0.2% CUTTER MACHINE TENDER 400 MG in 200 Med 08/19/21 19:00 Active ML] 400 mg EPIDUR ASDIRECTED Sodium Chloride 0.9% [Normal Saline] Med 08/19/21 17:15 Active 10 ml IV ASDIRECTED PRN Sodium Chloride 0.9% [Saline Flush] Med 08/19/21 17:15 Active 10 ml FLUSH ASDIRECTED PRN Sodium Chloride 0.9% [Saline Flush] Med 08/19/21 17:15 Active 2.5 ml FLUSH ASDIRECTED PRN Tranexamic Acid [Cyklokapron] 1,000 mg Med 08/19/21 17:15 Active Sodium Chloride 0.9% [Normal Saline] 100 ml IV ONETIME Water For Irrigation,Sterile [Sterile Water for Med 08/19/21 17:15 Active Irrigation] 1,000 ml IRR ASDIRECTED PRN ePHEDrine [ePHEDrine sulfate] Med 08/19/21 18:49 Active 10 mg IVPUSH Q1M PRN ePHEDrine [ePHEDrine sulfate] Med 08/19/21 18:49 Active 10 mg IVPUSH Q5M PRN miSOPROStoL [Cytotec] Med 08/19/21 17:15 Active 200 mcg PO ONETIME PRN Scalp Electrode [WOMSER] Per Unit Routine Oth 08/19/21 17:15 Ordered Peripheral IV Insertion Adult [OM.PC] Routine Oth 08/19/21 17:15 Ordered Resuscitation Status Routine Resus Stat 08/19/21 17:15 Ordered Medication Orders Acetaminophen (Acetaminophen 500 Mg Tab) 1,000 mg PO Q6H PRN PRN Reason: Headache Last Admin: 08/19/21 20:07 Dose: 1,000 mg Documented by: ARMOND Butorphanol Tartrate (Butorphanol 1 Mg/Ml Sdv) 1 mg IVPUSH Q1H PRN PRN Reason: Pain (severe 7-10) Carboprost Tromethamine (Carboprost Tromethamine 250 Mcg/1 Ml Amp) 250 mcg IM ASDIRECTED PRN PRN Reason: Post Hemorrhage Ephedrine Sulfate (Ephedrine 50 Mg/Ml Sdv) 10 mg IVPUSH Q5M PRN PRN Reason: Hypotension Ephedrine Sulfate (Ephedrine 50 Mg/Ml Sdv) 10 mg IVPUSH Q1M PRN PRN Reason: Hypotension Oxytocin/Sodium Chloride (Oxytocin 30 Unit In Ns 0.9% 500 Ml Premix) 30 unit in 500 mls @ 500 mls/hr IV TITRATE [facility] Tranexamic Acid 1,000 mg/ (Sodium Chloride) 110 mls @ 660 mls/hr IV ONETIME PRN PRN Reason: Bleeding Lactated Ringer's (Ringers, Lactated) 1,000 mls @ 150 mls/hr IV ASDIRECTED TIFFANY Last Admin: 08/19/21 20:33 Dose: 999 mls/hr Documented by: Infusion: 08/19/21 20:27 Dose: 150 mls/hr Documented by: Infusion: 08/19/21 19:30 Dose: 999 mls/hr Documented by: Admin: 08/19/21 19:12 Dose: 200 mls/hr Documented by: Infusion: 08/19/21 18:54 Dose: 999 mls/hr Documented by: Infusion: 08/19/21 17:58 Dose: 999 mls/hr Documented by: Admin: 08/19/21 17:26 Dose: 150 mls/hr Documented by: JAMIE Ampicillin Sodium 1 gm/ Sodium (Chloride) 50 mls @ 100 mls/hr IV Q4H [facility] Last Admin: 08/19/21 20:58 Dose: 100 mls/hr Documented by: ARMOND Lidocaine HCl (Lidocaine 1% 50 Ml Mdv) 50 ml INJECT ONETIME PRN PRN Reason: Laceration repair Methylergonovine Maleate (Methylergonovine 0.2 Mg/1 Ml Amp) 0.2 mg IM ASDIRECTED PRN PRN Reason: Post Hemorrhage Miscellaneous Medication (Phenylephrine Hcl In 0.9% Nacl 1 Mg/10 Ml Syringe) 0.1 mg IVPUSH Q1M PRN PRN Reason: Hypotension Misoprostol (Misoprostol 200 Mcg Tab) 200 mcg PO ONETIME PRN PRN Reason: Post Hemorrhage Nalbuphine HCl (Nalbuphine 10 Mg/1 Ml Vial) 10 mg IVPUSH Q1H PRN PRN Reason: Pain (severe 7-10) Ropivacaine (Ropivacaine/Pf 400 Mg/200 Ml Parts Cataloger) 400 mg EPIDUR ASDIRECTED TIFFANY Sodium Chloride (Sodium Chloride 0.9% 10 Ml Syringe) 10 ml FLUSH ASDIRECTED PRN PRN Reason: Keep Vein Open Sodium Chloride (Sodium Chloride 0.9% 2.5 Ml Syringe) 2.5 ml FLUSH ASDIRECTED PRN PRN Reason: Keep Vein Open Sodium Chloride (Sodium Chloride 0.9% 20 Ml Sdv) 10 ml IV ASDIRECTED PRN PRN Reason: IV Use Sterile Water (Water For Irrigation,Sterile 1,000 Ml Container) 1,000 ml IRR ASDIRECTED PRN PRN Reason: delivery Assessment/Plan Comment:: 35yo @ 38w4d GA admitted in active labor. Cat 1 tracing. Bautista score ~8-10 P: Expectant management epidural PRN
--- NOTE | 2021-08-19 22:32 | PCM.DEL ---
L & D Note - General Info Date of Service: 08/19/21 Mother's Due Date: 08/29/21 - Delivery Note Labor: Spontaneous Delivery Outcome: Livebirth Infant Delivery Method: Spontaneous Vaginal Delivery-Single Presentation: Vertex Nuchal Cord: None Laceration: None Placenta: Manual Removal, Retained Cord: 3 Vessels Estimated Blood Loss: 600 Resuscitation Needed: No Score 1 min: 8 Score 5 min: 9 - General Info Date of Service: 08/19/21 Admission Dx/Problem (Free Text): Patient Status Order with Admit Dx/Problem 08/19/21 17:15 Patient Status [ADT] Routine Admission Diagnosis/Problem Admission Diagnosis/Problem Subjective Update: 35yo G5 now P2022 @ 38w4d GA s/p VD c/b retained placenta with successful manual removal. patient received 1g of ancef. EBL 600-700cc. Patient asymptomatic. Mom and baby are doing well. Functional Status: Reports: Pain Controlled - Review of Systems General: Reports: No Symptoms HEENT: Reports: No Symptoms Pulmonary: Reports: No Symptoms Cardiovascular: Reports: No Symptoms Gastrointestinal: Reports: No Symptoms Genitourinary: Reports: No Symptoms Musculoskeletal: Reports: No Symptoms Skin: Reports: No Symptoms Neurological: Reports: No Symptoms Psychiatric: Reports: No Symptoms - Patient Data Weight - Most Recent: 92.533 kg I&O - Last 24 Hours: Intake & Output 08/19/21 08/19/21 08/19/21 06:59 14:59 22:59 Intake Total 2049 Balance 2049 Lab Results Last 24 Hours: Laboratory Results - last 24 hr 08/19/21 08/19/21 Range/Units 17:10 17:10 WBC 12.85 H (4.0-11.0) K/uL RBC 3.86 L (4.30-5.90) M/uL Hgb 12.6 (12.0-16.0) g/dL Hct 36.8 (36.0-46.0) % MCV 95.3 (80.0-98.0) fL MCH 32.6 H (27.0-32.0) pg MCHC 34.2 (31.0-37.0) g/dL RDW Std Deviation 51.7 (28.0-62.0) fl RDW Coeff of Bianca 15 (11.0-15.0) % Plt Count 269 (150-400) K/uL MPV 9.70 (7.40-12.00) fL Nucleated RBC % 0.0 /100WBC Nucleated RBCs # 0 K/uL Blood Type A POSITIVE Antibody Screen NEGATIVE Med Orders - Current: Current Medications Acetaminophen (Acetaminophen 500 Mg Tab) 1,000 mg PO Q6H PRN PRN Reason: Headache Last Admin: 08/19/21 20:07 Dose: 1,000 mg Documented by: Butorphanol Tartrate (Butorphanol 1 Mg/Ml Sdv) 1 mg IVPUSH Q1H PRN PRN Reason: Pain (severe 7-10) Carboprost Tromethamine (Carboprost Tromethamine 250 Mcg/1 Ml Amp) 250 mcg IM ASDIRECTED PRN PRN Reason: Post Hemorrhage Ephedrine Sulfate (Ephedrine 50 Mg/Ml Sdv) 10 mg IVPUSH Q5M PRN PRN Reason: Hypotension Ephedrine Sulfate (Ephedrine 50 Mg/Ml Sdv) 10 mg IVPUSH Q1M PRN PRN Reason: Hypotension Oxytocin/Sodium Chloride (Oxytocin 30 Unit In Ns 0.9% 500 Ml Premix) 30 unit in 500 mls @ 500 mls/hr IV TITRATE [facility] Tranexamic Acid 1,000 mg/ (Sodium Chloride) 110 mls @ 660 mls/hr IV ONETIME PRN PRN Reason: Bleeding Lactated Ringer's (Ringers, Lactated) 1,000 mls @ 150 mls/hr IV ASDIRECTED [facility] Last Admin: 08/19/21 20:33 Dose: 999 mls/hr Documented by: Ampicillin Sodium 1 gm/ Sodium (Chloride) 50 mls @ 100 mls/hr IV Q4H [facility] Last Admin: 08/19/21 20:58 Dose: 100 mls/hr Documented by: Lidocaine HCl (Lidocaine 1% 50 Ml Mdv) 50 ml INJECT ONETIME PRN PRN Reason: Laceration repair Methylergonovine Maleate (Methylergonovine 0.2 Mg/1 Ml Amp) 0.2 mg IM ASDIRECTED PRN PRN Reason: Post Hemorrhage Miscellaneous Medication (Phenylephrine Hcl In 0.9% Nacl 1 Mg/10 Ml Syringe) 0.1 mg IVPUSH Q1M PRN PRN Reason: Hypotension Misoprostol (Misoprostol 200 Mcg Tab) 200 mcg PO ONETIME PRN PRN Reason: Post Hemorrhage Nalbuphine HCl (Nalbuphine 10 Mg/1 Ml Vial) 10 mg IVPUSH Q1H PRN PRN Reason: Pain (severe 7-10) Ropivacaine (Ropivacaine/Pf 400 Mg/200 Ml Personnel Generalist Manager) 400 mg EPIDUR ASDIRECTED TIFFANY Sodium Chloride (Sodium Chloride 0.9% 10 Ml Syringe) 10 ml FLUSH ASDIRECTED PRN PRN Reason: Keep Vein Open Sodium Chloride (Sodium Chloride 0.9% 2.5 Ml Syringe) 2.5 ml FLUSH ASDIRECTED PRN PRN Reason: Keep Vein Open Sodium Chloride (Sodium Chloride 0.9% 20 Ml Sdv) 10 ml IV ASDIRECTED PRN PRN Reason: IV Use Sterile Water (Water For Irrigation,Sterile 1,000 Ml Container) 1,000 ml IRR ASDIRECTED PRN PRN Reason: delivery Discontinued Medications Acetaminophen (Acetaminophen 500 Mg Tab) Confirm Administered Dose 1,000 mg .ROUTE .STK-MED ONE Stop: 08/19/21 20:07 Ampicillin Sodium (Ampicillin 2 Gm Vial) Confirm Administered Dose 2 gm .ROUTE .STK-MED ONE Stop: 08/19/21 17:22 Ampicillin Sodium (Ampicillin 1 Gm Vial) Confirm Administered Dose 1 gm .ROUTE .STK-MED ONE Stop: 08/19/21 20:48 Ampicillin Sodium 2 gm/ Sodium (Chloride) 100 mls @ 200 mls/hr IV ONETIME ONE Stop: 08/19/21 17:44 Last Admin: 08/19/21 17:28 Dose: 200 mls/hr Documented by: Sodium Chloride (Normal Saline Advbag) Confirm Administered Dose 100 mls @ as directed .ROUTE .STK-MED ONE Stop: 08/19/21 17:22 Ropivacaine (Naropin 0.2%) Confirm Administered Dose 200 mls @ as directed .ROUTE .STK-MED ONE Stop: 08/19/21 18:25 Sodium Chloride (Normal Saline Advbag) Confirm Administered Dose 50 mls @ as directed .ROUTE .STK-MED ONE Stop: 08/19/21 20:49 - Exam Urinary Catheter Total Time: 0Days 1Hours General: Alert, Oriented Lungs: Normal Respiratory Effort Cardiovascular: Regular Rate GI/Abdominal Exam: Normal Bowel Sounds, Soft Extremities: Normal Inspection Psy/Mental Status: Alert, Normal Affect, Normal Mood - Problem List & Annotations (1) Labor established SNOMED Code(s): 57257458 Code(s): WSQ3691 - Status: Acute (2) Term SNOMED Code(s): 24669522 Code(s): Z34.90 - ENCNTR FOR SUPRVSN OF NORMAL , UNSP, UNSP TRIMESTER Status: Acute Priority: High (3) Gestational hypertension SNOMED Code(s): 48801153 Code(s): O13.9 - GESTATIONAL HTN W/O SIGNIFICANT PROTEINURIA, UNSP TRIMESTER Status: Acute Priority: High Qualifiers: Trimester: third trimester Qualified Code(s): O13.3 - Gestational [-induced] hypertension without significant proteinuria, third trimester - Problem List Review Problem List Initiated/Reviewed/Updated: Yes - My Orders Last 24 Hours: My Active Orders 08/19/21 20:04 Acetaminophen [Tylenol Extra Strength] 1,000 mg PO Q6H PRN - Plan Plan:: 35yo G5 now P2022 @ 38w4d GA s/p VD c/b retained placenta with successful manual removal. patient received 1g of ancef. EBL 600-700cc. Patient asymptomatic. Mom and baby are doing well. P: routine care Monitor VS, blood loss and temperature.
[2021-08-19] MEDS ORDERED: Terbutaline 1 MG/ML SDV SUBCUT PRN (22:46)
[2021-08-20] MEDS ORDERED: ceFAZolin 1 GM in Premix Bag 1 BAG IV ONE (01:00)
[2021-08-20] MEDS ORDERED: Morphine 2 MG/ML SYRINGE IVPUSH ONE (01:08)
[2021-08-20] MEDS ORDERED: Morphine 2 MG/ML SYRINGE ONE (01:09)
[2021-08-20] MEDS ORDERED: Benzocaine/Menthol 20%-0.5% Spray 78 GM Cannister TOP PRN (01:51)
[2021-08-20] MEDS ORDERED: Witch Hazel Medicated Pads 40/Jar TOP PRN (01:51)
[2021-08-20] MEDS ORDERED: Ibuprofen 400 MG Tab PO PRN (01:51)
[2021-08-20] MEDS ORDERED: Acetaminophen 500 MG Tab PO PRN ×2 (01:51)
[2021-08-20] MEDS ORDERED: Lanolin 100% Cream 7 GM Tube TOP PRN (01:51)
[2021-08-20] MEDS ORDERED: Bisacodyl 10 MG Supp RECTAL PRN (01:51)
[2021-08-20] MEDS: Acetaminophen 500 MG Tab PO PRN ×2 (01:58→23:40)
--- NOTE | 2021-08-20 04:41 | PCM48HPAN ---
Post Anesthesia Note - EVALUATION WITHIN 48HRS OF ANESTHETIC Vital Signs in Normal Range: Yes Patient Participated in Evaluation: Yes Respiratory Function Stable: Yes Airway Patent: Yes Cardiovascular Function Stable: Yes Hydration Status Stable: Yes Pain Control Satisfactory: Yes Nausea and Vomiting Control Satisfactory: Yes Mental Status Recovered: Yes
[2021-08-20] MEDS: Ibuprofen 800 MG Tab PO PRN ×3 (05:15→23:40)
[2021-08-20] MEDS: Docusate Sodium 100 MG Cap PO PRN ×2 (08:37→23:41)
--- NOTE | 2021-08-20 08:47 | PCM.PNPP ---
- General Info Date of Service: 08/20/21 Functional Status: Reports: Pain Controlled - Review of Systems General: Reports: No Symptoms HEENT: Reports: No Symptoms Pulmonary: Reports: No Symptoms Cardiovascular: Reports: No Symptoms Gastrointestinal: Reports: No Symptoms Genitourinary: Reports: No Symptoms Musculoskeletal: Reports: No Symptoms Skin: Reports: No Symptoms Neurological: Reports: No Symptoms Psychiatric: Reports: No Symptoms - General Info Date of Service: 08/20/21 - Patient Data Vital Signs - Most Recent: Last Vital Signs Temp 36.4 C 08/20/21 08:00 Pulse 63 08/20/21 08:00 Resp 18 08/20/21 08:00 BP 120/67 08/20/21 08:00 Pulse Ox 96 08/20/21 08:00 Weight - Most Recent: 92.533 kg I&O - Last 24 Hours: Intake & Output 08/19/21 08/20/21 08/20/21 22:59 06:59 14:59 Intake Total 2049 1400 Balance 2049 1400 Lab Results - Last 24 Hours: Laboratory Results - last 24 hr 08/19/21 08/19/21 Range/Units 17:10 17:10 WBC 12.85 H (4.0-11.0) K/uL RBC 3.86 L (4.30-5.90) M/uL Hgb 12.6 (12.0-16.0) g/dL Hct 36.8 (36.0-46.0) % MCV 95.3 (80.0-98.0) fL MCH 32.6 H (27.0-32.0) pg MCHC 34.2 (31.0-37.0) g/dL RDW Std Deviation 51.7 (28.0-62.0) fl RDW Coeff of Bianca 15 (11.0-15.0) % Plt Count 269 (150-400) K/uL MPV 9.70 (7.40-12.00) fL Nucleated RBC % 0.0 /100WBC Nucleated RBCs # 0 K/uL Blood Type A POSITIVE Antibody Screen NEGATIVE Med Orders - Current: Current Medications Acetaminophen (Acetaminophen 500 Mg Tab) 1,000 mg PO Q6H PRN PRN Reason: Headache Last Admin: 08/20/21 01:58 Dose: 1,000 mg Documented by: Acetaminophen (Acetaminophen 500 Mg Tab) 500 mg PO Q4H PRN PRN Reason: Pain (mild 1-3) Acetaminophen (Acetaminophen 500 Mg Tab) 1,000 mg PO Q4H PRN PRN Reason: Pain (mild 1-3) Last Admin: 08/20/21 08:37 Dose: 1,000 mg Documented by: Benzocaine/Menthol (Benzocaine/Menthol 20%-0.5% [place] 78 Gm Cannister) 78 gm TOP ASDIRECTED PRN PRN Reason: Perineal Comfort Measure Last Admin: 08/20/21 02:00 Dose: 1 canister Documented by: Bisacodyl (Bisacodyl 10 Mg Supp) 10 mg RECTAL ONETIME PRN PRN Reason: Constipation Butorphanol Tartrate (Butorphanol 1 Mg/Ml Sdv) 1 mg IVPUSH Q1H PRN PRN Reason: Pain (severe 7-10) Carboprost Tromethamine (Carboprost Tromethamine 250 Mcg/1 Ml Amp) 250 mcg IM ASDIRECTED PRN PRN Reason: Post Hemorrhage Docusate Sodium (Docusate Sodium 100 Mg Cap) 100 mg PO Q12H PRN PRN Reason: Constipation Last Admin: 08/20/21 08:37 Dose: 100 mg Documented by: Emollient Ointment (Lanolin 100% Cream 7 Gm Tube) 0 gm TOP ASDIRECTED PRN PRN Reason: Sore Nipples Ephedrine Sulfate (Ephedrine 50 Mg/Ml Sdv) 10 mg IVPUSH Q5M PRN PRN Reason: Hypotension Ephedrine Sulfate (Ephedrine 50 Mg/Ml Sdv) 10 mg IVPUSH Q1M PRN PRN Reason: Hypotension Oxytocin/Sodium Chloride (Oxytocin 30 Unit In Ns 0.9% 500 Ml Premix) 30 unit in 500 mls @ 500 mls/hr IV TITRATE [facility] Last Infusion: 08/20/21 01:44 Dose: 500 mls/hr Documented by: Tranexamic Acid 1,000 mg/ (Sodium Chloride) 110 mls @ 660 mls/hr IV ONETIME PRN PRN Reason: Bleeding Lactated Ringer's (Ringers, Lactated) 1,000 mls @ 150 mls/hr IV ASDIRECTED [facility] Last Admin: 08/19/21 20:33 Dose: 999 mls/hr Documented by: Ampicillin Sodium 1 gm/ Sodium (Chloride) 50 mls @ 100 mls/hr IV Q4H [place] Last Admin: 08/19/21 20:58 Dose: 100 mls/hr Documented by: Oxytocin/Sodium Chloride (Oxytocin 30 Unit In Ns 0.9% 500 Ml Premix) 30 unit in 500 mls @ 2 mls/hr IV TITRATE [place]; Protocol Last Titration: 08/20/21 00:25 Dose: 500 munits/min, 500 mls/hr Documented by: Ibuprofen (Ibuprofen 400 Mg Tab) 400 mg PO Q4H PRN PRN Reason: Pain (mild 1-3) Ibuprofen (Ibuprofen 800 Mg Tab) 800 mg PO Q6H PRN PRN Reason: Cramping Last Admin: 08/20/21 05:15 Dose: 800 mg Documented by: Lidocaine HCl (Lidocaine 1% 50 Ml Mdv) 50 ml INJECT ONETIME PRN PRN Reason: Laceration repair Methylergonovine Maleate (Methylergonovine 0.2 Mg/1 Ml Amp) 0.2 mg IM ASDIRECTED PRN PRN Reason: Post Hemorrhage Miscellaneous Medication (Phenylephrine Hcl In 0.9% Nacl 1 Mg/10 Ml Syringe) 0.1 mg IVPUSH Q1M PRN PRN Reason: Hypotension Misoprostol (Misoprostol 200 Mcg Tab) 200 mcg PO ONETIME PRN PRN Reason: Post Hemorrhage Last Admin: 08/20/21 01:31 Dose: 200 mcg Documented by: Nalbuphine HCl (Nalbuphine 10 Mg/1 Ml Vial) 10 mg IVPUSH Q1H PRN PRN Reason: Pain (severe 7-10) Ropivacaine (Ropivacaine/Pf 400 Mg/200 Ml Inspector Finishing) 400 mg EPIDUR ASDIRECTED [place] Sodium Chloride (Sodium Chloride 0.9% 10 Ml Syringe) 10 ml FLUSH ASDIRECTED PRN PRN Reason: Keep Vein Open Sodium Chloride (Sodium Chloride 0.9% 2.5 Ml Syringe) 2.5 ml FLUSH ASDIRECTED PRN PRN Reason: Keep Vein Open Sodium Chloride (Sodium Chloride 0.9% 20 Ml Sdv) 10 ml IV ASDIRECTED PRN PRN Reason: IV Use Sterile Water (Water For Irrigation,Sterile 1,000 Ml Container) 1,000 ml IRR ASDIRECTED PRN PRN Reason: delivery Terbutaline Sulfate (Terbutaline 1 Mg/Ml Sdv) 0.25 mg SUBCUT ASDIRECTED PRN PRN Reason: Tacysystole Witch Hortensia (Witch Hortensia Medicated Pads 40/Jar) 1 pad TOP ASDIRECTED PRN PRN Reason: comfort care Last Admin: 08/20/21 01:59 Dose: 1 tub Documented by: Discontinued Medications Acetaminophen (Acetaminophen 500 Mg Tab) Confirm Administered Dose 1,000 mg .ROUTE .STK-MED ONE Stop: 08/19/21 20:07 Ampicillin Sodium (Ampicillin 2 Gm Vial) Confirm Administered Dose 2 gm .ROUTE .STK-MED ONE Stop: 08/19/21 17:22 Ampicillin Sodium (Ampicillin 1 Gm Vial) Confirm Administered Dose 1 gm .ROUTE .STK-MED ONE Stop: 08/19/21 20:48 Ampicillin Sodium 2 gm/ Sodium (Chloride) 100 mls @ 200 mls/hr IV ONETIME ONE Stop: 08/19/21 17:44 Last Admin: 08/19/21 17:28 Dose: 200 mls/hr Documented by: Sodium Chloride (Normal Saline Advbag) Confirm Administered Dose 100 mls @ as directed .ROUTE .STK-MED ONE Stop: 08/19/21 17:22 Ropivacaine (Naropin 0.2%) Confirm Administered Dose 200 mls @ as directed .ROUTE .STK-MED ONE Stop: 08/19/21 18:25 Sodium Chloride (Normal Saline Advbag) Confirm Administered Dose 50 mls @ as directed .ROUTE .STK-MED ONE Stop: 08/19/21 20:49 Cefazolin Sodium/Dextrose 1 gm (/ Premix) 50 mls @ 100 mls/hr IV ONETIME ONE Stop: 08/20/21 01:29 Last Admin: 08/20/21 01:24 Dose: 100 mls/hr Documented by: Cefazolin Sodium/Dextrose (Ancef) Confirm Administered Dose 50 mls @ as directed .ROUTE .STK-MED ONE Stop: 08/20/21 00:59 Morphine Sulfate (Morphine 2 Mg/Ml Syringe) 2 mg IVPUSH ONETIME ONE Stop: 08/20/21 01:09 Last Admin: 08/20/21 01:13 Dose: 2 mg Documented by: Morphine Sulfate (Morphine 2 Mg/Ml Syringe) Confirm Administered Dose 2 mg .ROUTE .STK-MED ONE Stop: 08/20/21 01:10 - Infant Interaction Infant Disposition, : in Room with Family Infant Interaction: Holding Infant Feeding: Attempted ; Nursed Fair/Poor Support Person: - Recovery Exam Fundal Tone: Firm Fundal Level: 1 Fingerbreadths Above Umbilicus Fundal Placement: Midline Lochia Amount: Scant Lochia Color: Rubra/Red Perineum Description: Intact, Minimal Bruising/Swelling Bladder Status: Palpable - Exam General: Alert, Oriented HEENT: Pupils Equal Neck: Supple Lungs: Clear to Auscultation, Normal Respiratory Effort Cardiovascular: Regular Rate, Regular Rhythm GI/Abdominal Exam: Normal Bowel Sounds, Soft, Non-Tender, No Organomegaly, No Distention, No Abnormal Bruit, No Mass, Pelvis Stable Extremities: Normal Inspection, Normal Range of Motion, Non-Tender, No Pedal Edema, Normal Capillary Refill Skin: Warm, Dry, Intact Wound/Incisions: Healing Well Neurological: No New Focal Deficit Psy/Mental Status: Alert, Normal Affect, Normal Mood - Problem List Review Problem List Initiated/Reviewed/Updated: Yes - My Orders Last 24 Hours: My Active Orders 08/19/21 17:10 RPR (SYPHILIS SERO) W/ RFLX [REF] Routine 08/19/21 17:15 Notify Provider [RC] PRN Vital Signs [RC] PER UNIT ROUTINE Butorphanol [Stadol] 1 mg IVPUSH Q1H PRN Carboprost Tromethamine [Hemabate DS] 250 mcg IM ASDIRECTED PRN Lactated Ringers [Ringers, Lactated] 1,000 ml IV ASDIRECTED Lidocaine 1% [Xylocaine 1%] 50 ml INJECT ONETIME PRN Methylergonovine [Methergine] 0.2 mg IM ASDIRECTED PRN Nalbuphine [Nubain] 10 mg IVPUSH Q1H PRN Oxytocin/0.9 % Sodium Chloride [Oxytocin 30 Unit in NS 0.9% 500 ML Premix] 30 unit in 500 ml IV TITRATE Sodium Chloride 0.9% [Normal Saline] 10 ml IV ASDIRECTED PRN Sodium Chloride 0.9% [Saline Flush] 10 ml FLUSH ASDIRECTED PRN Sodium Chloride 0.9% [Saline Flush] 2.5 ml FLUSH ASDIRECTED PRN Tranexamic Acid [Cyklokapron] 1,000 mg Sodium Chloride 0.9% [Normal Saline] 100 ml IV ONETIME Water For Irrigation,Sterile [Sterile Water for Irrigation] 1,000 ml IRR ASDIRECTED PRN miSOPROStoL [Cytotec] 200 mcg PO ONETIME PRN Scalp Electrode [WOMSER] Per Unit Routine Peripheral IV Insertion Adult [OM.PC] Routine Resuscitation Status Routine 08/19/21 21:00 Ampicillin 1 gm Sodium Chloride 0.9% [Normal Saline AdvBag] 50 ml IV Q4H 08/20/21 Breakfast Regular Diet [DIET] - Assessment Assessment:: Status post normal spontaneous vaginal delivery she is doing well - Plan Plan:: 35yo @ 38w4d [place] admitted in active labor. Cat 1 tracing. Bautista score ~8-10 P: Expectant management epidural PRN
[2021-08-20] MEDS: Acetaminophen/oxyCODONE 325-5 MG Tab PO PRN (18:45)
[2021-08-20] MEDS: Ampicillin 1 GM in Sodium Chloride 0.9% 50 ML IV SCH ×2 (21:33→21:34)
[2021-08-21 04:24] VITALS: BP 124/75; PULSE 68
[2021-08-21] MEDS: Acetaminophen/oxyCODONE 325-5 MG Tab PO PRN ×2 (04:34→11:20)
[2021-08-21] MEDS: Ibuprofen 800 MG Tab PO PRN (07:40)
--- NOTE | 2021-08-21 07:47 | PCM.DCSUM1 ---
Discharge Summary - Hospital Course Diagnosis: Stroke: No - Discharge Data Discharge Date: 08/21/21 Discharge Disposition: Home, Self-Care 01 Condition: Good - Referral to Home Health Primary Care Physician: PCP None - Patient Instructions Diet: Usual Diet as Tolerated Activity: As Tolerated Showering/Bathing: May Shower - Discharge Plan Home Medications: Home Meds Pnv No.95/Ferrous Fum/Folic AC [ Caplet] 1 tab PO DAILY 06/05/19 [History] Sertraline HCl 1 tab PO DAILY 09/20/20 [History] Nitrofurantoin [place]/Macrocryst [Nitrofurantoin [place]-MCR] 100 mg PO BID 09/27/20 [History] Acyclovir [Zovirax] 400 mg PO 07/28/21 [History] Famotidine [Pepcid] 40 mg PO BID 07/28/21 [History] Patient Handouts: Baby Blues, Care After Vaginal Delivery - Discharge Summary/Plan Comment DC Time >30 min.: Yes Total # of Minutes for Discharge Time: 30 - General Info Date of Service: 08/21/21 Functional Status: Reports: Pain Controlled - Review of Systems General: Reports: No Symptoms HEENT: Reports: No Symptoms Pulmonary: Reports: No Symptoms Cardiovascular: Reports: No Symptoms Gastrointestinal: Reports: No Symptoms Genitourinary: Reports: No Symptoms Musculoskeletal: Reports: No Symptoms Skin: Reports: No Symptoms Neurological: Reports: No Symptoms Psychiatric: Reports: No Symptoms - Patient Data Vitals - Most Recent: Last Vital Signs Temp 35.9 C L 08/21/21 04:00 Pulse 68 08/21/21 04:00 Resp 20 08/21/21 04:00 BP 124/75 08/21/21 04:00 Pulse Ox 97 08/21/21 04:00 Weight - Most Recent: 92.533 kg Lab Results - Last 24 hrs: Laboratory Results - last 24 hr 08/21/21 Range/Units 05:00 Hgb 11.3 L (12.0-16.0) g/dL Hct 33.8 L (36.0-46.0) % Med Orders - Current: Current Medications Acetaminophen (Acetaminophen 500 Mg Tab) 1,000 mg PO Q6H PRN PRN Reason: Headache Last Admin: 08/20/21 23:40 Dose: 1,000 mg Documented by: Acetaminophen (Acetaminophen 500 Mg Tab) 500 mg PO Q4H PRN PRN Reason: Pain (mild 1-3) Acetaminophen (Acetaminophen 500 Mg Tab) 1,000 mg PO Q4H PRN PRN Reason: Pain (mild 1-3) Last Admin: 08/20/21 08:37 Dose: 1,000 mg Documented by: Benzocaine/Menthol (Benzocaine/Menthol 20%-0.5% [place] 78 Gm Cannister) 78 gm TOP ASDIRECTED PRN PRN Reason: Perineal Comfort Measure Last Admin: 08/20/21 02:00 Dose: 1 canister Documented by: Bisacodyl (Bisacodyl 10 Mg Supp) 10 mg RECTAL ONETIME PRN PRN Reason: Constipation Butorphanol Tartrate (Butorphanol 1 Mg/Ml Sdv) 1 mg IVPUSH Q1H PRN PRN Reason: Pain (severe 7-10) Carboprost Tromethamine (Carboprost Tromethamine 250 Mcg/1 Ml Amp) 250 mcg IM ASDIRECTED PRN PRN Reason: Post Hemorrhage Docusate Sodium (Docusate Sodium 100 Mg Cap) 100 mg PO Q12H PRN PRN Reason: Constipation Last Admin: 08/20/21 23:41 Dose: 100 mg Documented by: Emollient Ointment (Lanolin 100% Cream 7 Gm Tube) 0 gm TOP ASDIRECTED PRN PRN Reason: Sore Nipples Last Admin: 08/20/21 14:31 Dose: 1 tube Documented by: Ephedrine Sulfate (Ephedrine 50 Mg/Ml Sdv) 10 mg IVPUSH Q5M PRN PRN Reason: Hypotension Ephedrine Sulfate (Ephedrine 50 Mg/Ml Sdv) 10 mg IVPUSH Q1M PRN PRN Reason: Hypotension Oxytocin/Sodium Chloride (Oxytocin 30 Unit In Ns 0.9% 500 Ml Premix) 30 unit in 500 mls @ 500 mls/hr IV TITRATE [facility] Last Infusion: 08/20/21 01:44 Dose: 500 mls/hr Documented by: Tranexamic Acid 1,000 mg/ (Sodium Chloride) 110 mls @ 660 mls/hr IV ONETIME PRN PRN Reason: Bleeding Lactated Ringer's (Ringers, Lactated) 1,000 mls @ 150 mls/hr IV ASDIRECTED [facility] Last Admin: 08/19/21 20:33 Dose: 999 mls/hr Documented by: Oxytocin/Sodium Chloride (Oxytocin 30 Unit In Ns 0.9% 500 Ml Premix) 30 unit in 500 mls @ 2 mls/hr IV TITRATE [place]; Protocol Last Titration: 08/20/21 00:25 Dose: 500 munits/min, 500 mls/hr Documented by: Ibuprofen (Ibuprofen 400 Mg Tab) 400 mg PO Q4H PRN PRN Reason: Pain (mild 1-3) Ibuprofen (Ibuprofen 800 Mg Tab) 800 mg PO Q6H PRN PRN Reason: Cramping Last Admin: 08/21/21 07:40 Dose: 800 mg Documented by: Lidocaine HCl (Lidocaine 1% 50 Ml Mdv) 50 ml INJECT ONETIME PRN PRN Reason: Laceration repair Methylergonovine Maleate (Methylergonovine 0.2 Mg/1 Ml Amp) 0.2 mg IM ASDIRECTED PRN PRN Reason: Post Hemorrhage Miscellaneous Medication (Phenylephrine Hcl In 0.9% Nacl 1 Mg/10 Ml Syringe) 0.1 mg IVPUSH Q1M PRN PRN Reason: Hypotension Misoprostol (Misoprostol 200 Mcg Tab) 200 mcg PO ONETIME PRN PRN Reason: Post Hemorrhage Last Admin: 08/20/21 01:31 Dose: 200 mcg Documented by: Nalbuphine HCl (Nalbuphine 10 Mg/1 Ml Vial) 10 mg IVPUSH Q1H PRN PRN Reason: Pain (severe 7-10) Oxycodone/Acetaminophen (Acetaminophen/Oxycodone 325-5 Mg Tab) 1 - 2 tab PO Q6H PRN PRN Reason: Pain Last Admin: 08/21/21 04:34 Dose: 1 tab Documented by: Ropivacaine (Ropivacaine/Pf 400 Mg/200 Ml Answerer) 400 mg EPIDUR ASDIRECTED [place] Sodium Chloride (Sodium Chloride 0.9% 10 Ml Syringe) 10 ml FLUSH ASDIRECTED PRN PRN Reason: Keep Vein Open Sodium Chloride (Sodium Chloride 0.9% 2.5 Ml Syringe) 2.5 ml FLUSH ASDIRECTED PRN PRN Reason: Keep Vein Open Sodium Chloride (Sodium Chloride 0.9% 20 Ml Sdv) 10 ml IV ASDIRECTED PRN PRN Reason: IV Use Sterile Water (Water For Irrigation,Sterile 1,000 Ml Container) 1,000 ml IRR ASDIRECTED PRN PRN Reason: delivery Terbutaline Sulfate (Terbutaline 1 Mg/Ml Sdv) 0.25 mg SUBCUT ASDIRECTED PRN PRN Reason: Tacysystole Witch Hortensia (Witch Hortensia Medicated Pads 40/Jar) 1 pad TOP ASDIRECTED PRN PRN Reason: comfort care Last Admin: 08/20/21 01:59 Dose: 1 tub Documented by: Discontinued Medications Acetaminophen (Acetaminophen 500 Mg Tab) Confirm Administered Dose 1,000 mg .ROUTE .STK-MED ONE Stop: 08/19/21 20:07 Last Admin: 08/20/21 21:32 Dose: Not Given Documented by: Ampicillin Sodium (Ampicillin 2 Gm Vial) Confirm Administered Dose 2 gm .ROUTE .STK-MED ONE Stop: 08/19/21 17:22 Last Admin: 08/20/21 21:32 Dose: Not Given Documented by: Ampicillin Sodium (Ampicillin 1 Gm Vial) Confirm Administered Dose 1 gm .ROUTE .STK-MED ONE Stop: 08/19/21 20:48 Last Admin: 08/20/21 21:32 Dose: Not Given Documented by: Ampicillin Sodium 2 gm/ Sodium (Chloride) 100 mls @ 200 mls/hr IV ONETIME ONE Stop: 08/19/21 17:44 Last Admin: 08/19/21 17:28 Dose: 200 mls/hr Documented by: Sodium Chloride (Normal Saline Advbag) Confirm Administered Dose 100 mls @ as directed .ROUTE .STK-MED ONE Stop: 08/19/21 17:22 Last Admin: 08/20/21 21:32 Dose: Not Given Documented by: Ropivacaine (Naropin 0.2%) Confirm Administered Dose 200 mls @ as directed .ROUTE .STK-MED ONE Stop: 08/19/21 18:25 Last Admin: 08/20/21 21:32 Dose: Not Given Documented by: Ampicillin Sodium 1 gm/ Sodium (Chloride) 50 mls @ 100 mls/hr IV Q4H [place] Last Admin: 08/20/21 21:34 Dose: Not Given Documented by: Sodium Chloride (Normal Saline Advbag) Confirm Administered Dose 50 mls @ as directed .ROUTE .STK-MED ONE Stop: 08/19/21 20:49 Last Admin: 08/20/21 21:33 Dose: Not Given Documented by: Cefazolin Sodium/Dextrose 1 gm (/ Premix) 50 mls @ 100 mls/hr IV ONETIME ONE Stop: 08/20/21 01:29 Last Admin: 08/20/21 01:24 Dose: 100 mls/hr Documented by: Cefazolin Sodium/Dextrose (Ancef) Confirm Administered Dose 50 mls @ as directed .ROUTE .STK-MED ONE Stop: 08/20/21 00:59 Last Admin: 08/20/21 21:33 Dose: Not Given Documented by: Morphine Sulfate (Morphine 2 Mg/Ml Syringe) 2 mg IVPUSH ONETIME ONE Stop: 08/20/21 01:09 Last Admin: 08/20/21 01:13 Dose: 2 mg Documented by: Morphine Sulfate (Morphine 2 Mg/Ml Syringe) Confirm Administered Dose 2 mg .ROUT E .STK-MED ONE Stop: 08/20/21 01:10 Last Admin: 08/20/21 21:34 Dose: Not Given Documented by: - Exam General: Reports: Alert, Oriented HEENT: Reports: Pupils Equal, Pupils Reactive, EOMI, Mucous Membr. Moist/[place] Neck: Reports: Supple Lungs: Reports: Clear to Auscultation, Normal Respiratory Effort Cardiovascular: Reports: Regular Rate, Regular Rhythm GI/Abdominal Exam: Normal Bowel Sounds, Soft, Non-Tender, No Organomegaly, No Distention, No Abnormal Bruit, No Mass, Pelvis Stable (Female) Exam: Normal External Exam, Normal Speculum Exam, Normal Bimanual Exam Rectal (Female) Exam: Normal Exam, Normal Rectal Tone Back Exam: Reports: Normal Inspection, Full Range of Motion Extremities: Normal Inspection, Normal Range of Motion, Non-Tender, No Pedal Edema, Normal Capillary Refill Skin: Reports: Warm, Dry, Intact Wound/Incisions: Reports: Healing Well Neurological: Reports: No New Focal Deficit Psy/Mental Status: Reports: Alert, Normal Affect, Normal Mood
== END 2021-08-21 13:29 | disposition home or self-care (01) | DRG 807 ==
LOC: MW.OB 17:02 → MW.OBCHECK 17:02 → MW.OB 17:15 → MW.OBCHECK 17:15 → OBSVTOIN 08-20 00:24 → MW.OB 08-20 05:50
PROVIDERS: ADMIT Obstetrics & Gynecology; ATTEND Obstetrics & Gynecology
PROC: 3E0R3BZ Introduction of Anesthetic Agent into Spinal Canal, Percutaneous Approach (ICD-10-PCS; principal; 2021-08-20)
PROC: 00HU33Z Insertion of Infusion Device into Spinal Canal, Percutaneous Approach (ICD-10-PCS; 2021-08-20)
PROC: 10E0XZZ Delivery of Products of Conception, External Approach (ICD-10-PCS; 2021-08-20)
PROC: 10D17Z9 Manual Extraction of Products of Conception, Retained, Via Natural or Artificial Opening (ICD-10-PCS; 2021-08-20)
DX: O99.344 Other mental disorders complicating childbirth (principal); Z37.0 Single live birth; F41.9 Anxiety disorder, unspecified; Z87.891 Personal history of nicotine dependence; Z3A.38 38 weeks gestation of pregnancy; Z79.899 Other long term (current) drug therapy
CPT/HCPCS: 01967; 36415; 51702; 59025; 59409; 85014; 85018; 85027; 86592; 86850; 86900; 86901; A9270-GY; J0290; J0690; J2270; J2590; J2795; J7120

== ENCOUNTER 2021-10-25 19:11 | Emergency (ER) | payer BC, OTHER ==
[2021-10-25] MEDS ORDERED: Sodium Chloride 0.9% 2.5 ML Syringe FLUSH PRN (19:31)
[2021-10-25] MEDS ORDERED: Sodium Chloride 0.9% 10 ML Syringe FLUSH PRN (19:31)
[2021-10-25] MEDS ORDERED: Sodium Chloride 0.9% 1,000 ML IV ONE (19:32)
[2021-10-25 19:52] LABS: BLOOD UREA NITROGEN,BUN 18 mg/dL (7.0-18.0); CARBON DIOXIDE,CO2 26.4 mmol/L (21.0-32.0); CHLORIDE,CL 101 mmol/L (98-107); GLUCOSE RANDOM 94 mg/dL (74-106); POTASSIUM,K 3.7 mmol/L (3.5-5.1); SODIUM,NA 138 mmol/L (136-145)
[2021-10-25 20:18] LABS: CORONAVIRUS COVID-19 NAA NEGATIVE (NEGATIVE); INFLUENZA A NAA NEGATIVE (NEGATIVE); INFLUENZA B NAA NEGATIVE (NEGATIVE)
[2021-10-25 21:40] VITALS: BP 112/66; PULSE 74
== END 2021-10-25 21:42 | disposition home or self-care (01) ==
LOC: MW.ED 19:11
DX: R07.9 Chest pain, unspecified (principal); Z88.1 Allergy status to other antibiotic agents; Z20.822 Contact with and (suspected) exposure to COVID-19
CPT/HCPCS: 0240U; 36415; 71045; 80053; 83735; 84484; 85025; 85379; 85610; 93005; 99285; J7030

== ENCOUNTER 2022-01-21 09:09 | Emergency (ER) | payer BC ==
[2022-01-21] MEDS ORDERED: Ketorolac 30 MG/ML SDV IVPUSH ONE (09:34)
[2022-01-21] MEDS ORDERED: Sodium Chloride 0.9% 1,000 ML IV ONE (09:34)
[2022-01-21] MEDS ORDERED: Ondansetron 4 MG/2 ML SDV IVPUSH ONE (09:48)
[2022-01-21 10:23] LABS: BLOOD UREA NITROGEN,BUN 12 mg/dL (7.0-18.0); CARBON DIOXIDE,CO2 22.3 mmol/L (21.0-32.0); CHLORIDE,CL 102 mmol/L (98-107); GLUCOSE RANDOM 95 mg/dL (74-106); POTASSIUM,K 4.1 mmol/L (3.5-5.1); SODIUM,NA 136 mmol/L (136-145)
[2022-01-21 10:37] LABS: CORONAVIRUS COVID-19 NAA NEGATIVE (NEGATIVE); INFLUENZA A NAA NEGATIVE (NEGATIVE); INFLUENZA B NAA NEGATIVE (NEGATIVE)
[2022-01-21] MEDS ORDERED: Iopamidol 755 MG/ML 500 ML Multipack Bottle IVPUSH STA (10:59)
[2022-01-21] MEDS ORDERED: Morphine 4 MG/ML VIAL IVPUSH ONE (11:03)
[2022-01-21 12:34] VITALS: BP 108/71; PULSE 70
== END 2022-01-21 12:31 | disposition home or self-care (01) ==
LOC: MW.ED 09:09
DX: I88.9 Nonspecific lymphadenitis, unspecified (principal); Z88.1 Allergy status to other antibiotic agents; Z86.16 Personal history of COVID-19; Z20.822 Contact with and (suspected) exposure to COVID-19
CPT/HCPCS: 0240U; 36415; 70487; 80053; 81003; 83605; 84703; 85025; 86140; 96374; 96375; 99283; J1885; J2270; J2405; J7030; Q9967

== ENCOUNTER 2022-03-27 20:56 | Emergency (ER) | payer BC ==
[2022-03-27 21:11] VITALS: BP 124/91; PULSE 76
[2022-03-27] MEDS ORDERED: Sodium Chloride 0.9% 2.5 ML Syringe FLUSH PRN (21:13)
[2022-03-27] MEDS ORDERED: Sodium Chloride 0.9% 10 ML Syringe FLUSH PRN (21:13)
[2022-03-27] MEDS ORDERED: Sodium Chloride 0.9% 1,000 ML IV ONE (21:14)
[2022-03-27] MEDS ORDERED: LORazepam 2 MG/ML Syringe IVPUSH ONE (21:14)
[2022-03-27] MEDS ORDERED: LORazepam 2 MG/ML SDV IVPUSH ONE (21:25)
[2022-03-27 21:58] LABS: CARBON DIOXIDE,CO2 27.2 mmol/L (21.0-32.0); POTASSIUM,K 4.1 mmol/L (3.5-5.1)
== END 2022-03-27 22:41 | disposition home or self-care (01) ==
LOC: MW.ED 20:56
DX: R06.4 Hyperventilation (principal); Z88.1 Allergy status to other antibiotic agents
CPT/HCPCS: 36415; 80053; 83735; 85025; 85610; 93005; 96374; 99284; J2060; J3490; J7030

== ENCOUNTER 2022-05-26 09:12 | Day surgery (SDC) | payer BC ==
[~2022-05-26 09:12] MED LIST: Lactated Ringers 1,000 ML IV SCH; Sodium Chloride 0.9% 10 ML Syringe FLUSH PRN; Sodium Chloride 0.9% 2.5 ML Syringe FLUSH PRN; Sodium Chloride 0.9% 20 ML SDV IV PRN
[2022-05-26] MEDS ORDERED: Lidocaine 2% 5 ML SDV ONE (09:41)
[2022-05-26] MEDS ORDERED: Propofol 200 MG/20 ML SDV ONE (09:41)
[2022-05-26] MEDS ORDERED: fentaNYL 100 MCG/2 ML SDV ONE (09:41)
[2022-05-26] MEDS ORDERED: Glycopyrrolate 0.2 MG/ML SDV ONE ×2 (10:28)
[2022-05-26 12:28] VITALS: BP 107/67; PULSE 55
== END 2022-05-26 11:43 | disposition home or self-care (01) ==
LOC: MW.SDS 09:12
PROVIDERS: ATTEND Surgery
DX: K52.9 Noninfective gastroenteritis and colitis, unspecified (principal); K92.1 Melena; F41.8 Other specified anxiety disorders; E87.6 Hypokalemia; N39.0 Urinary tract infection, site not specified; F17.210 Nicotine dependence, cigarettes, uncomplicated; Z79.899 Other long term (current) drug therapy; Z88.1 Allergy status to other antibiotic agents; Z79.2 Long term (current) use of antibiotics; Z98.890 Other specified postprocedural states; Z86.16 Personal history of COVID-19
CPT/HCPCS: 45380; 81025; J2704; J3010; J3490; J7120; 00811

== ENCOUNTER 2024-05-13 22:31 | Emergency (ER) | payer BC ==
[2024-05-13] MEDS: Sodium Chloride 0.9% 2.5 ML Syringe FLUSH PRN (22:54)
[2024-05-13] MEDS: Sodium Chloride 0.9% 10 ML Syringe FLUSH PRN (22:54)
[2024-05-13] MEDS: Sodium Chloride 0.9% 1,000 ML IV ONE (22:54)
[2024-05-13 23:00] LABS: BASOPHILS ABSOLUTE AUTO 0.04 K/uL (0.00-0.20); BASOPHILS PERCENT AUTO 0.6 % (0.0-1.0); EOSINOPHILS PERCENT AUTO 1.4 % (0.0-6.0); HEMATOCRIT 39.1 % (37.0-47.0); HEMOGLOBIN 13.6 g/dL (12.0-16.0); IMMATURE GRAN ABSOLUTE AUTO 0.02 K/uL (0.00-0.05); IMMATURE GRAN PERCENT AUTO 0.3 % (0.0-0.4); LYMPHOCYTES ABSOLUTE AUTO 2.06 K/uL (1.00-4.80); LYMPHOCYTES PERCENT AUTO 29.1 % (24.0-44.0); MEAN CORPUSCULAR HEMOGLOBIN 31.2 pg (28.0-32.0); MEAN CORPUSCULAR HGB CONC 34.8 g/dL (32.0-36.0); MEAN CORPUSCULAR VOLUME 89.7 fL (83.0-99.0); MEAN PLATELET VOLUME 8.8 fL (9.4-12.3); MONOCYTES ABSOLUTE AUTO 0.41 K/uL (0.00-0.80); MONOCYTES PERCENT AUTO 5.8 % (0.0-8.0); NEUTROPHILS ABSOLUTE AUTO 4.46 K/uL (1.80-7.70); NEUTROPHILS PERCENT AUTO 62.8 % (41.0-71.0); PLATELET COUNT,PLT 248 K/uL (150-400); RED BLOOD CELL COUNT 4.36 M/uL (4.10-5.30); WHITE BLOOD CELL COUNT,WBC 7.09 K/uL (3.9-11.3)
[2024-05-13 23:14] LABS: INR 1.21 (0.86-1.11); PTT,PARTIAL THROMBOPLSTIN TIME 25.4 SEC (23.9-30.7)
[2024-05-13 23:21] LABS: A/G RATIO 1.3 (0.9-1.6); ALBUMIN 4.4 g/dL (3.4-5.0); BILIRUBIN TOTAL 0.6 mg/dL (0.2-1.0); CALCIUM 8.8 mg/dL (8.5-10.1); CREATININE 0.8 mg/dL (0.6-1.0); EST CRCL DRUG DOSING (CG) 105.13 mL/min; POTASSIUM,K 3.4 mmol/L (3.5-5.1); PROTEIN TOTAL,TP 7.7 g/dL (6.4-8.2)
[2024-05-13] MEDS: Morphine 4 MG/ML Syringe IVPUSH STA (23:43)
[2024-05-14 00:01] VITALS: BP 112/72; PULSE 57
[2024-05-14 00:15] LABS: APPEARANCE,URINE CLEAR; BILIRUBIN,URINE NEGATIVE (NEGATIVE); COLOR,URINE YELLOW; GLUCOSE,URINE NEGATIVE (NEGATIVE); KETONES,URINE NEGATIVE (NEGATIVE); LEUKOCYTE ESTERASE,URINE TRACE (NEGATIVE); NITRITE,URINE NEGATIVE (NEGATIVE); OCCULT BLOOD,URINE NEGATIVE (NEGATIVE); PROTEIN,URINE NEGATIVE (NEGATIVE); UROBILINOGEN,URINE 0.2 EU/dL (<2.0)
[2024-05-14 00:29] LABS: BACTERIA,URINE FEW (NEGATIVE); EPITHELIAL CELLS,URINE FEW (NONE-FEW); RBC,URINE 0-1 (0-2/HPF)
[2024-05-14] MEDS: Morphine 4 MG/ML Syringe IVPUSH STA (01:46)
== END 2024-05-14 02:21 ==
LOC: MW.ED 22:31
DX: S22.050A Wedge compression fracture of T5-T6 vertebra, initial encounter for closed fracture (principal); S32.019A Unspecified fracture of first lumbar vertebra, initial encounter for closed fracture; S32.029A Unspecified fracture of second lumbar vertebra, initial encounter for closed fracture; S32.039A Unspecified fracture of third lumbar vertebra, initial encounter for closed fracture; R20.2 Paresthesia of skin; Z88.8 Allergy status to other drugs, medicaments and biological substances; Z86.16 Personal history of COVID-19; W10.9XXA Fall (on) (from) unspecified stairs and steps, initial encounter
CPT/HCPCS: 36415; 70450; 71250; 72125; 72128; 72131; 74176; 80053; 81001; 84703; 85025; 85610; 85730; 96374; 96376; 99285; J2270; J3490; J7030; 99284; 99291